=== PATIENT | male | born 1950 | race Caucasian/White ===

== ENCOUNTER 2017-10-07 15:54 | Emergency (ER) | payer MEDICARE, MEDICAID ==
[2017-10-07] MEDS ORDERED: Levofloxacin 500 MG IVPREMIX(* 500 MG/100 ML BAG IVPB ONE (18:27)
[2017-10-07 18:33] LABS: ABS Basophils 0 10^3/ul (0-0.2); ABS Eosinophils 0.2 10^3/ul (0-0.6); ABS Lymphocytes 1.2 10^3/ul (1.0-4.8); ABS Monocytes 0.5 10^3/ul (0-0.8); ABS Neutrophils 5.6 10^3/ul (1.5-7.7); ABS Nucleated RBC 0 10^3/ul; Eosinophil % 2.3 % (0-6); Hematocrit 34 % (42-52); Hemoglobin 11.6 g/dl (14.0-18.0); Lymphocyte % 15.8 % (25-47); Mean Corpuscular HGB Conc 34 g/dl (31-36); Mean Corpuscular Hemoglobin 34 pg (27-31); Mean Corpuscular Volume 100 fL (80-94); Mean Platelet Volume 7 um3 (7.4-10.4); Nucleated Red Blood Cells % 0; Platelet Count 230 10^3/ul (150-450); Red Blood Count 3.42 10^6/ul (4.0-5.4); Red Cell Distribution Width 14 % (10.5-15); White Blood Count 7.5 10^3/ul (3.5-10.8)
[2017-10-07 18:47] LABS: EGFR Non-African American 136.2 (>60)
--- NOTE | 2017-10-07 19:13 | RAD ---
HISTORY: Left fourth toe infection COMPARISONS: Bone scan dated August 29, 2017 VIEWS: 3, Frontal, lateral, and oblique views of the left foot FINDINGS: BONE DENSITY: There is diffuse osteopenia. BONES: There is no displaced fracture. There is no appreciable erosion or periosteal reaction. JOINTS: There is no arthropathy. ALIGNMENT: There is no dislocation. SOFT TISSUES: There is soft tissue swelling of the midfoot OTHER FINDINGS: None. IMPRESSION: 1. SOFT TISSUE SWELLING. 2. NO APPRECIABLE EROSION OR PERIOSTEAL REACTION. 3. OSTEOPENIA. 4. PLAIN FILM FINDINGS OF OSTEOMYELITIS ARE RELATIVELY LATE FINDINGS. IF THERE IS PERSISTENT CLINICAL CONCERN FOR OSTEOMYELITIS, RECOMMEND CORRELATION WITH FOLLOWUP IMAGING, THREE-PHASE BONE SCANNING, WHITE BLOOD CELL SCAN, AND/OR MRI OF THE AFFECTED REGION. 5. NO ACUTE OSSEOUS INJURY. IF SYMPTOMS PERSIST, RECOMMEND REPEAT IMAGING.
--- NOTE | 2017-10-07 20:21 | ED ---
Skin Complaint - HPI Summary HPI Summary: 67M presents with swelling in left 4th toe for 4 days. He states that the redness has been spreading. He was started on keflex on Sunday and the redness stopped spreading but today his 4th toe swelled up and started to have pus like drainage. He is diabetic and is being treated for stage 4 prostate CA. He has not checked his sugars recently. He denies any fever, cough, SOB. chest pain or generalized illness. He states area is painful with walking. He denies any injury of the area. - History of Current Complaint Chief Complaint: EDExtremityLower Time Seen by Provider: 10/07/17 18:02 Stated Complaint: LEFT 4TH TOE SWOLLEN Pain Intensity: 2 - Allergy/Home Medications Allergies/Adverse Reactions: Allergies Allergy/AdvReac Type Severity Reaction Status Date / Time No Known Allergies Allergy Verified 08/29/17 10:35 PMH/Surg Hx/FS Hx/Imm Hx Endocrine/Hematology History: Reports: Hx Diabetes Cardiovascular History: Reports: Hx Hypertension History: Reports: Other Problems/Disorders - prostate Denies: Hx Renal Disease - Cancer History Cancer Type, Location and Year: prostate. also liza hip pain with walking Hx Chemotherapy: No - Surgical History Surgery Procedure, Year, and Place: nose left ring finger, hemmorhoids,. veneral warts, Infectious Disease History: No Infectious Disease History: Denies: Traveled Outside the [place] in Last 30 Days - Family History Known Family History: Positive: Unknown - Social History Alcohol Use: Daily Substance Use Type: Reports: None Smoking Status (MU): Smoker, Current Status Unknown Review of Systems Negative: Fever Negative: Chest Pain Negative: Shortness Of Breath Positive: Edema - left 4th toe Positive: Rash All Other Systems Reviewed And Are Negative: Yes Physical Exam Triage Information Reviewed: Yes Vital Signs On Initial Exam: Initial Vitals Temp Pulse Resp BP Pulse Ox 97.5 F 66 15 146/72 97 10/07/17 15:58 10/07/17 15:58 10/07/17 15:58 10/07/17 15:58 10/07/17 15:58 Vital Signs Reviewed: Yes Appearance: Positive: Well-Appearing Skin: Positive: Warm, Dry, Other - abscess of 4th toe with surrouding erythema partially up left foot with warmth to the area Head/Face: Positive: Normal Head/Face Inspection Eyes: Positive: Normal, Conjunctiva Clear Respiratory/Lung Sounds: Positive: Clear to Auscultation, Breath Sounds Present Cardiovascular: Positive: Normal, RRR Musculoskeletal: Positive: Strength/ROM Intact - left foot, Edema Right - left foot, Other - good pulses Neurological: Positive: Normal Psychiatric: Positive: Normal - Dennys Coma Scale Coma Scale Total: 15 Procedures - Incision and Drainage Site: 4th toe Anesthesia: Digital Instrument(s): Scalpel Diagnostics - Vital Signs Vital Signs Temp Pulse Resp BP Pulse Ox 10/07/17 15:58 97.5 F 66 15 146/72 97 - Laboratory Lab Results: Lab Results 10/07/17 10/07/17 10/07/17 Range/Units 18:25 18:25 18:25 WBC 7.5 (3.5-10.8) 10^3/ul RBC 3.42 L (4.0-5.4) 10^6/ul Hgb 11.6 L (14.0-18.0) g/dl Hct 34 L (42-52) % MCV 100 H (80-94) fL MCH 34 H (27-31) pg MCHC 34 (31-36) g/dl RDW 14 (10.5-15) % Plt Count 230 (150-450) 10^3/ul MPV 7 L (7.4-10.4) um3 Neut % (Auto) 74.3 (38-83) % Lymph % (Auto) 15.8 L (25-47) % Johnson % (Auto) 7.2 (1-9) % Eos % (Auto) 2.3 (0-6) % Baso % (Auto) 0.4 (0-2) % Absolute Neuts (auto) 5.6 (1.5-7.7) 10^3/ul Absolute Lymphs (auto) 1.2 (1.0-4.8) 10^3/ul Absolute Monos (auto) 0.5 (0-0.8) 10^3/ul Absolute Eos (auto) 0.2 (0-0.6) 10^3/ul Absolute Basos (auto) 0 (0-0.2) 10^3/ul Absolute Nucleated RBC 0 10^3/ul Nucleated RBC % 0 Sodium 137 (133-145) mmol/L Potassium 3.3 L (3.5-5.0) mmol/L Chloride 103 (101-111) mmol/L Carbon Dioxide 27 (22-32) mmol/L Anion Gap 7 (2-11) mmol/L BUN 8 (6-24) mg/dL Creatinine 0.59 L (0.67-1.17) mg/dL Est GFR ( Amer) 175.2 (>60) Est GFR (Non-Af Amer) 136.2 (>60) BUN/Creatinine Ratio 13.6 (8-20) Glucose 210 H (70-100) mg/dL Lactic Acid 1.1 (0.5-2.0) mmol/L Calcium 9.1 (8.6-10.3) mg/dL Total Bilirubin 0.50 (0.2-1.0) mg/dL AST 19 (13-39) U/L ALT 6 L (7-52) U/L Alkaline Phosphatase 154 H (34-104) U/L Total Protein 6.7 (6.4-8.9) g/dL Albumin 3.8 (3.2-5.2) g/dL Globulin 2.9 (2-4) g/dL Albumin/Globulin Ratio 1.3 (1-3) Result Diagrams: 10/07/17 18:25 10/07/17 18:25 Lab Statement: Any lab studies that have been ordered have been reviewed, and results considered in the medical decision making process. - Radiology foot Xray Interpretation: Positive (See Comments) - IMPRESSION: 1. SOFT TISSUE SWELLING. 2. NO APPRECIABLE EROSION OR PERIOSTEAL REACTION. 3. OSTEOPENIA. 4. PLAIN FILM FINDINGS OF OSTEOMYELITIS ARE RELATIVELY LATE FINDINGS. IF THERE IS PERSISTENT CLINICAL CONCERN FOR OSTEOMYELITIS, RECOMMEND CORRELATION WITH FOLLOWUP IMAGING, THREE-PHASE BONE SCANNING, WHITE BLOOD CELL SCAN, AND/OR MRI OF THE AFFECTED REGION. 5. NO ACUTE OSSEOUS INJURY. IF SYMPTOMS PERSIST, RECOMMEND REPEAT IMAGING. Radiology Interpretation Completed By: Radiologist Course/Dx - Course Course Of Treatment: 67M presents with swelling in left 4th toe for 4 days. He states that the redness has been spreading. He was started on keflex on Sunday and the redness stopped spreading but today his 4th toe swelled up and started to have pus like drainage. He is diabetic and is being treated for stage 4 prostate CA. He has not checked his sugars recently. He denies any fever, cough, SOB. chest pain or generalized illness. He states area is painful with walking. He denies any injury of the area. on exam has abscess of left 4th toe. has erythema partially up the foot. labs normal wbc and lactic. drained abscess and gave dose of levaquin and cellulitis improved. will discharge with levaquin in addition to keflex. has follow up on sunday already. warned of signs to return to ED for. patient understand and agrees with plan. - Differential Diagnoses - Skin Complaint Differential Diagnoses: Abscess, Cellulitis, Contact Dermatitis - Diagnoses Provider Diagnoses: Cellulitis and abscess of toe of left foot Discharge - Discharge Plan Condition: Good Disposition: HOME Prescriptions: Levofloxacin TAB* [Levaquin TAB*] 500 mg PO DAILY #9 tab Patient Education Materials: Cellulitis (ED), Abscess (ED) Referrals: Yanci Jhaveri MD [Primary Care Provider] - Additional Instructions: Continue keflex as prescribed add levaquin once a day for 9 days Do warm soaks of area Follow up with doctor within 2 days Return to ED if develop fever, area of redness spreads, or any new or worsening symptoms
[2017-10-07 20:55] VITALS: BP 147/78
--- NOTE | 2017-10-08 09:36 | PN ---
Progress Note - Progress Note Date of Service: 10/07/17 Note: lab called to inform that wound culture shows staph aureus + and MRSA negative. patient was diagnosed with cellulitis and treated with levofloxacin which has susceptibility. no further action required at this time.
== END 2017-10-07 20:59 | disposition home or self-care (01) ==
LOC: ED 15:54
DX: L03.032 Cellulitis of left toe (principal); B95.61 Methicillin susceptible Staphylococcus aureus infection as the cause of diseases classified elsewhere; M85.872 Other specified disorders of bone density and structure, left ankle and foot; F17.200 Nicotine dependence, unspecified, uncomplicated
CPT/HCPCS: 36415; 80053; 83605; 85025; 87070; 87077; 87186; 87205; 87640; 87641; 96365; 96374; 99282; J1956

== ENCOUNTER 2017-11-21 07:19 | Day surgery (SDC) | payer MEDICARE, MEDICAID ==
[~2017-11-21 07:19] MED LIST: Buffered Lidocaine 0.9% SYRIN* 5 ML/SYR SYRINGE INTRADERM ONE
[2017-11-21] MEDS ORDERED: Lidocaine 1% INJ* 10 MG/ML 30 ML SDV ONE (07:20)
[2017-11-21] MEDS ORDERED: Bupivacaine 0.5% SDV PF* 10-30ML VIAL ONE (07:21)
[2017-11-21] MEDS ORDERED: Dexamethasone IV* 4 MG/ML 1 ML (4 MG) ONE (07:30)
[2017-11-21 08:46] VITALS: BP 153/78
--- NOTE | 2017-11-22 00:20 | OP ---
DATE OF OPERATION: 11/21/17 - [facility] DATE OF : 46 SURGEON: Derrick Vasquez DPM DRIVER/GUIDE: None. ANESTHESIA: Local anesthesia. PRE-OP DIAGNOSIS: Ulcerated fourth left toe with confirmed osteomyelitis. POST-OP DIAGNOSIS: Ulcerated fourth left toe with confirmed osteomyelitis. OPERATIVE REPORT: Amputation of fourth left toe. INDICATIONS: Diabetic patient seen with chronic ulceration and abscess and confirmed osteomyelitis per MRI with requiring amputation of the digits to cure the infection and minimize chronic antibiotic exposure. PATHOLOGY: Amputated toe and proximal wound cultures, aerobic and anaerobic. HEMOSTASIS: None. ESTIMATED BLOOD LOSS: Less than 20 cc. DESCRIPTION OF PROCEDURE: The patient was brought to the operating room, placed on the operating table in supine position. Left foot was prepped and draped in usual fashion. Next, 0.5% Marcaine plain was used as a proximal digital block. After assuring adequate anesthesia, the 2 semi-elliptical incisions were made and then sized down to bone and the digit was resected and sent off the field as specimen. The proximal wound was flushed copiously with normal sterile saline, then an aerobic and anaerobic culture swabs were introduced and sent to field. Again, the surgical site was flushed with copious amounts of normal sterile saline. Hemostasis with compression was necessary. Deep tissues and subcutaneous tissues were reapproximated with 4-0 Vicryl and the skin was reapproximated and secured with 4-0 Nylon. The incision was then dressed with Xeroform gauze and a sterile dressing consisting of 4x4 gauze, Conner, ABD pad and Kerlix and light Coban wrap. Having appeared to tolerate the procedure and anesthesia well, the patient was transported via cart from the operating room Recovery in satisfactory condition with cap refill less than 3 seconds to all the remaining digits on the left foot. [id number]/[facility] #: [id number] [facility] HOSPITALElizabeth
== END 2017-11-21 09:05 | disposition home or self-care (01) ==
LOC: OREAST 07:19
PROVIDERS: ATTEND Podiatrist Foot Surgery
DX: M86.8X7 Other osteomyelitis, ankle and foot (principal); Z79.84 Long term (current) use of oral hypoglycemic drugs; E11.69 Type 2 diabetes mellitus with other specified complication; E78.2 Mixed hyperlipidemia; Z72.0 Tobacco use; I10 Essential (primary) hypertension; C61 Malignant neoplasm of prostate; R94.31 Abnormal electrocardiogram [ECG] [EKG]; I45.10 Unspecified right bundle-branch block; I73.9 Peripheral vascular disease, unspecified
CPT/HCPCS: 87070; 87073; 87205; 88305; 88311; J1100

== ENCOUNTER 2018-03-14 06:18 | Day surgery (SDC) | payer MEDICARE, MEDICAID ==
[2018-03-14] MEDS ORDERED: Bupivacaine 0.5%* 50 ML VIAL ONE (07:27)
[2018-03-14 08:16] VITALS: BP 93/75
--- NOTE | 2018-03-15 08:10 | OP ---
DATE OF OPERATION: 03/14/18 [facility] DATE OF : 46. SURGEON: Derrick Vasquez DPM. DIRECTOR OF PLANNING: None. ANESTHESIA: Local anesthesia. PRE-OP DIAGNOSIS: Chronic ulceration with osteomyelitis of the third left toe. POST-OP DIAGNOSIS: Chronic ulceration with osteomyelitis of the third left toe. OPERATIVE PROCEDURE: Amputation of the third left toe. PATHOLOGY: Amputated digit and cultures from proximal wound including aerobic and anaerobic, Gram-stain, and fungal cultures. HEMOSTASIS: Pneumatic ankle tourniquet. ESTIMATED BLOOD LOSS: Less than 10 cc. INDICATIONS: The patient with chronic ulceration to the distal third left toe with focal cellulitis, slow healing ulcer with sinus and probing to the distal phalanx. Amputation of digit is indicated at this time to treat the infection, minimize further infection and limit the need for antibiotic therapy. DESCRIPTION OF PROCEDURE: The patient was brought to the operating room, placed on the operating table in supine position. The left foot was prepped and draped. Digital blocks performed with 0.5% Marcaine plain. The left foot was prepped and draped in the usual fashion and an Esmarch bandage was utilized to exsanguinate the left foot and a pneumatic ankle tourniquet was inflated to 250 mmHg above a well- padded left ankle. Attention was directed to the third digit where two converging semi-elliptical incisions were made to allow for adequate soft tissue closure. Dissection was carried to the deep fascia and the proximal interphalangeal joint the distal digit was disarticulated and was amputated as specimen. The surgical site was flushed with copious amounts of normal sterile saline. The wound was inspected and no purulent or necrotic devitalized tissue was noted. Thereafter, I flushed the proximal wound, it was cultured for aerobic and anaerobic, Gram stain, and fungal cultures. The subcutaneous tissues were reapproximated with 4-0 Vicryl and the skin was closed with 5-0 and 4-0 nylon. The incision was dressed with Xeroform gauze and a bulky mild decompressive dressing was applied and secured with Coban wrap. The pneumatic ankle tourniquet was deflated and prior to completely closing the dressing, the capillary refill was noted to be prompted and brisk capillary refill to all the remaining digits less than 3 seconds. Having appeared to have tolerated the procedure and anesthesia well, the patient was transported to via cart from the operating room to Recovery in satisfactory condition with capillary refill intact to the left foot. [id number]/[facility] #: [id number] SARY
== END 2018-03-14 08:30 | disposition home or self-care (01) ==
LOC: OREAST 06:18
PROVIDERS: ATTEND Podiatrist Foot Surgery
DX: M86.172 Other acute osteomyelitis, left ankle and foot (principal); E11.40 Type 2 diabetes mellitus with diabetic neuropathy, unspecified; Z79.84 Long term (current) use of oral hypoglycemic drugs; Z72.0 Tobacco use; A49.01 Methicillin susceptible Staphylococcus aureus infection, unspecified site; I10 Essential (primary) hypertension; F41.8 Other specified anxiety disorders
CPT/HCPCS: 87070; 87073; 87077; 87102; 87186; 87205; 87640; 87641

== ENCOUNTER 2018-03-27 11:30 | Emergency (ER) | payer MEDICARE, MEDICAID ==
[2018-03-27] MEDS ORDERED: Glucose ORAL* 15 GM TUBE PO ONE (11:45)
[2018-03-27 12:43] LABS: Hematocrit 36 % (42-52); Hemoglobin 12.3 g/dl (14.0-18.0); Mean Corpuscular HGB Conc 34 g/dl (31-36); Mean Corpuscular Hemoglobin 35 pg (27-31); Mean Corpuscular Volume 101 fL (80-94); Red Blood Count 3.54 10^6/ul (4.0-5.4); Red Cell Distribution Width 14 % (10.5-15)
--- NOTE | 2018-03-27 12:47 | RAD ---
INDICATION: Weakness COMPARISON: Chest x-ray dated June 23, 2011 TECHNIQUE: PA and lateral views of the chest were obtained. FINDINGS: The heart and mediastinum are normal in size and contour. The lungs are grossly clear. There is no evidence of large pleural effusion. Visualized bones are normal for the patient's age. There is no radiographic evidence of free air beneath the diaphragm IMPRESSION: No radiographic evidence of acute cardiopulmonary disease.
[2018-03-27 13:13] LABS: Mean Platelet Volume 8.3 um3 (7.4-10.4); Platelet Count 227 10^3/ul (150-450); White Blood Count 13.5 10^3/ul (3.5-10.8)
[2018-03-27 13:15] LABS: Monocytes % 8 % (0-7)
[2018-03-27 13:37] LABS: Urine Appearance Clear; Urine Blood Negative (Negative); Urine Color Yellow; Urine Ketones Negative (Negative); Urine Protein Negative (Negative); Urine Urobilinogen Negative (Negative)
[2018-03-27 14:38] VITALS: BP 131/64
--- NOTE | 2018-03-28 11:49 | ED ---
Kevin Hoover Angela, scribed for Simeon Nicole MD on 03/27/18 at 1159 . HPI Diabetic - HPI Summary HPI Summary: This pt is a 67 y/o male, with hx of diabetes, presenting to [facility] via EMS for hypoglycemia. Pt reports he was at Dr. Morales for an appointment when he began to feel diaphoretic. Pt states he was given 3 small cookies (the size of a half dollar) and a small glass of soda with very mild relief. Per EMS the pt' s blood glucose was in the 40s. Denies chest pain, SOB, nausea, vomiting, weakness, tremors. He takes Glipizide for diabetes. Pt notes he has had two toe amputations, left fourth toe on 11/21/17 and left third on 03/14/18. The pt was started on Doxycycline and now is taking Bactrim. He is currently on morphine, gabapentin, and oxycodone for the pain. - History Of Current Complaint Time Seen by Provider: 03/27/18 11:37 Hx Obtained From: Patient Onset/Duration: Sudden Onset, Still Present Timing: Constant Severity Currently: Moderate Character: Other - diaphoretic Aggravating: Nothing Alleviating: Other - cookies and soda Associated Signs & Symptoms: Diaphoresis - Allergies/Home Medications Allergies/Adverse Reactions: Allergies Allergy/AdvReac Type Severity Reaction Status Date / Time No Known Allergies Allergy Verified 11/21/17 07:45 Home Medications: Home Medications Abiraterone (NF) [Zytiga (NF)] 1,000 mg PO QPM 03/27/18 [History Confirmed 03/27] FLUoxetine CAP* [PROzac CAP*] 20 mg PO QPM 03/27/18 [History Confirmed 03/27/18] Leuprolide 22.5 (3 MONTH) KIT* [Eligard KIT*] 22.5 mg IM Q3M 03/27/18 [History Confirmed 03/27/18] Lisinopril TAB* [Prinivil TAB*] 10 mg PO DAILY 03/27/18 [History Confirmed 03/27] Menthol [Gold Steven Foot Powder Max] 1 pow TOPICAL DAILY 03/27/18 [History Confirmed 03/27/18] Multivitamins/Minerals TAB* [Theragran/minerals TAB*] 1 tab PO DAILY 03/27/18 [ History Confirmed 03/27/18] Potassium Chlor TAB* [Klor Con ER TAB*] 20 meq PO QPM 03/27/18 [History Confirmed 03/27/18] amLODIPine TAB* [Norvasc 5 mg TAB*] 10 mg PO QPM 03/27/18 [History Confirmed 04/08] glipiZIDE TAB* [Glucotrol TAB*] 5 mg PO QPM 03/27/18 [History Confirmed 03/27/18 ] glipiZIDE TAB* [Glucotrol TAB*] 10 mg PO QAM 03/27/18 [History Confirmed ] metFORMIN* [Glucophage 1000 MG TAB *] 1,000 mg PO BID 03/27/18 [History Confirmed 03/27/18] oxyCODONE/Acetamin 5/325 MG* [Percocet 5/325 TAB*] 1 tab PO Q4H PRN 03/27/18 [ History Confirmed 03/27/18] PMH/Surg Hx/FS Hx/Imm Hx Endocrine/Hematology History: Reports: Hx Diabetes Cardiovascular History: Reports: Hx Hypertension Denies: Hx Pacemaker/ICD, Other Cardiovascular Problems/Disorders Respiratory History: Denies: Other Respiratory Problems/Disorders GI History: Reports: Hx Ulcer - "PRE ULCERAL CONDITION" Denies: Other GI Disorders History: Reports: Other Problems/Disorders - 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 Denies: Hx Renal Disease Musculoskeletal History: Reports: Other Musculoskeletal History - CHRONIC OSTEOMYELITIS, FOOT WOUND, BONE METS- SKULL & RIBS Sensory History: Reports: Hx Cataracts - EARLY STAGES, Hx Contacts or Glasses - GLASSES Denies: Hx Hearing Aid Opthamlomology History: Reports: Hx Cataracts - EARLY STAGES, Hx Contacts or Glasses - GLASSES Neurological History: Reports: Hx Migraine - NOT IN 16 YEARS, Other Neuro Impairments/Disorders - DIABETIC NEUROPATHY Psychiatric History: Reports: Hx Anxiety - ON MEDICATION, (STATES HE HAD A NERVOUS BREAKDOWN), Hx Depression - ON MEDICATION Denies: Hx Panic Disorder - Cancer History Cancer Type, Location and Year: prostate- Hx Chemotherapy: Yes - ZYTIGA - Surgical History Surgery Procedure, Year, and Place: 1961-NOSE BROKEN-REPAIRED. 1963-SEVERED LEFT RING FINGER REATTACHED. 1967 TONSILS. 1992-HEMORROIDECTOMY. 2004- VENEREAL WARTS REMOVED Hx Anesthesia Reactions: No Infectious Disease History: No Infectious Disease History: Denies: Traveled Outside the [place] in Last 30 Days - Family History Known Family History: Positive: Unknown - pt is adopted - Social History Alcohol Use: Daily Alcohol Amount: 1 BEER Substance Use Type: Reports: None Smoking Status (MU): Current Every Day Smoker Type: Pipe Amount Used/How Often: 3-4 PIPES PER DAY Have You Smoked in the Last Year: Yes Review of Systems Positive: Skin Diaphoresis. Negative: Fever, Chills Negative: Chest Pain Negative: Shortness Of Breath Negative: Vomiting, Nausea Neurological: Other - NEG: tremors Negative: Weakness All Other Systems Reviewed And Are Negative: Yes Physical Exam - Summary Physical Exam Summary: VITAL SIGNS: Reviewed. GENERAL: Patient is a well-developed and nourished male who is lying comfortable in the stretcher. Patient is not in any acute respiratory distress. HEAD AND FACE: No signs of trauma. No ecchymosis, hematomas or skull depressions. No sinus tenderness. EYES: PERRLA, EOMI x 2, No injected conjunctiva, no nystagmus. EARS: Hearing grossly intact. Ear canals and tympanic membranes are within normal limits. MOUTH: Oropharynx within normal limits. NECK: Supple, trachea is midline, no adenopathy, no JVD, no carotid bruit, no c- spine tenderness, neck with full ROM. CHEST: Symmetric, no tenderness at palpation LUNGS: Clear to auscultation bilaterally. No wheezing or crackles. CVS: Regular rate and rhythm, S1 and S2 present, no murmurs or gallops appreciated. ABDOMEN: Soft, non-tender. No signs of distention. No rebound no guarding, and no masses palpated. Bowel sounds are normal. EXTREMITIES: FROM in all major joints, no edema, no cyanosis or clubbing. LLE: left foot bandage placed by operator automated process. Pt reports it is not infected. Pt does not let us open it. NEURO: Alert and oriented x 3. No acute neurological deficits. Speech is normal and follows commands. SKIN: Dry and warm Triage Information Reviewed: Yes Vital Signs On Initial Exam: Initial Vitals Resp BP 16 131/64 03/27/18 11:39 03/27/18 11:39 Vital Signs Reviewed: Yes Diagnostics - Vital Signs Vital Signs Temp Pulse Resp BP Pulse Ox 03/27/18 11:47 97 F 53 16 131/64 94 03/27/18 11:39 16 131/64 - Laboratory Lab Results: Lab Results 03/27/18 Range/Units 11:39 POC Glucose (mg/dL) 62 L (70-100) mg/dL Result Diagrams: 03/27/18 11:58 03/27/18 12:37 Lab Statement: Any lab studies that have been ordered have been reviewed, and results considered in the medical decision making process. - Radiology Chest XR Xray Interpretation: No Acute Changes - IMPRESSION: No radiographic evidence of acute cardiopulmonary disease. Dr. Nicole has reviewed this radiology report. Radiology Interpretation Completed By: Radiologist - EKG 11:49 Cardiac Rate: Bradycardia - at 51 bpm EKG Rhythm: Sinus Bradycardia EKG Interpretation: No ST elevations. T wave inversion in III and aVF. Re-Evaluation - Re-Evaluation First Eval Re-Evaluation Time: 13:32 Change: Improved Comment: Pt is feeling better. I reviewed the lab results with the pt. He will be discharged home. Second Eval Re-Evaluation Time: 14:06 Change: Improved Comment: Prior to discharge the pt's blood glucose was 114. Diabetic Course/Dx - Course Assessment/Plan: Pt is a 67 y/o male, with hx of diabetes, who presents with hypoglycemia. Pt reports he was at Dr. Morales for an appointment when he began to feel diaphoretic. Pt states he was given 3 small cookies (the size of a half dollar) and a small glass of soda with very mild relief. Per EMS the pt' s blood glucose was in the 40s. Denies chest pain, SOB, nausea, vomiting, weakness, tremors. He takes Glipizide for diabetes. Test results without any significant abnormalities except for WBC of 13.5, normocytic normochromic anemia , CRP of 48, possibly secondary to his chronic infection in the left lower extremity. Urinalysis is negative for UTI. The pt was given some glucose PO and he was given food. Pt was observed for a couple of hours in the emergency department and his sugar did not drop. He did not take his Glipizide today and was recommended not to take it today. Therefore, the pt will be discharged home with follow up from his PCP. Pts blood glucose prior to discharge was 114. I discussed all the findings and test results with the patient. All questions were answered to patient satisfaction. There were no further complaints or concerns. He is instructed to return to the ED for any worsening or new symptoms. Pt is hemodynamically stable, alert and oriented x3. - Diagnoses Provider Diagnoses: Hypoglycemia Discharge - Sign-Out/Discharge Documenting (check all that apply): Discharge/Admit/Transfer - Discharge - Discharge Plan Condition: Stable Disposition: HOME Patient Education Materials: Hypoglycemia in a Person with Diabetes (ED) Referrals: Yanci Jhaveri MD [Primary Care Provider] - 3 Days Additional Instructions: Please follow up with your primary care provider. RETURN TO THE ED FOR ANY NEW OR WORSENING SYMPTOMS. The documentation as recorded by the Kevin stephenson Angela accurately reflects the service I personally performed and the decisions made by me, Simeon Nicole MD.
== END 2018-03-27 14:37 | disposition home or self-care (01) ==
LOC: ED 11:30
DX: E11.649 Type 2 diabetes mellitus with hypoglycemia without coma (principal); Z79.84 Long term (current) use of oral hypoglycemic drugs; R00.1 Bradycardia, unspecified; R61 Generalized hyperhidrosis; I10 Essential (primary) hypertension; F41.9 Anxiety disorder, unspecified; C61 Malignant neoplasm of prostate; C79.51 Secondary malignant neoplasm of bone; F17.290 Nicotine dependence, other tobacco product, uncomplicated
CPT/HCPCS: 36415; 71046; 80053; 81003; 82550; 82803; 85025; 86140; 93005; 99282

== ENCOUNTER 2019-02-16 22:57 | Emergency (ER) | payer MEDICARE, MEDICAID ==
--- NOTE | 2019-02-16 23:08 | ED ---
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 Symptoms aggravated by movement. Symptoms alleviated by nothing. Patient denies fever. Patient states he ran out of the oxycodone and morphine he takes for pain on 02/14/2019. - History of Current Complaint Stated Complaint: BACK PAIN PER EMS Time Seen by Provider: 02/16/19 23:03 Hx Obtained From: Patient Onset/Duration: Sudden Onset, Lasting Hours, Still Present Onset/Duration: Started Hours Ago, Atraumatic, Still Present Timing: Constant Back Pain Location: Is Diffuse Aggravating Symptom(s): Movement Alleviating Symptom(s): Nothing Associated Signs And Symptoms: Positive: Other - Negative fever - Allergies/Home Medications Allergies/Adverse Reactions: Allergies Allergy/AdvReac Type Severity Reaction Status Date / Time No Known Allergies Allergy Verified 04/02/18 15:04 PMH/Surg Hx/FS Hx/Imm Hx Previously Healthy: No Endocrine/Hematology History: Reports: Hx Diabetes Cardiovascular History: Reports: Hx Hypertension Denies: Hx Pacemaker/ICD, Other Cardiovascular Problems/Disorders Respiratory History: Denies: Other Respiratory Problems/Disorders GI History: Reports: Hx Ulcer - "PRE ULCERAL CONDITION" Denies: Other GI Disorders History: Reports: Other Problems/Disorders - 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 Denies: Hx Renal Disease Musculoskeletal History: Reports: Other Musculoskeletal History - CHRONIC OSTEOMYELITIS, FOOT WOUND, BONE METS- SKULL & RIBS Sensory History: Reports: Hx Cataracts - EARLY STAGES, Hx Contacts or Glasses - GLASSES Denies: Hx Hearing Aid Opthamlomology History: Reports: Hx Cataracts - EARLY STAGES, Hx Contacts or Glasses - GLASSES Neurological History: Reports: Hx Migraine - NOT IN 16 YEARS, Other Neuro Impairments/Disorders - DIABETIC NEUROPATHY Psychiatric History: Reports: Hx Anxiety - ON MEDICATION, (STATES HE HAD A NERVOUS BREAKDOWN), Hx Depression - ON MEDICATION Denies: Hx Panic Disorder - Cancer History Cancer Type, Location and Year: 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 1963-SEVERED LEFT RING FINGER REATTACHED. 1967 TONSILS. 1992-HEMORROIDECTOMY. 2004- VENEREAL WARTS REMOVED. 10/2017 - Lt FOOT - 4TH TOE AMPUTATED & 02/2018 - 3RD TOE AMPUTATED Hx Anesthesia Reactions: No - Family History Known Family History: Positive: Unknown - pt is adopted - Social History Occupation: Unemployed Lives: Alone Alcohol Use: Daily Alcohol Amount: 1 BEER Hx Substance Use: No Substance Use Type: Reports: None Hx Tobacco Use: Yes Smoking Status (MU): Current Every Day Smoker Type: Pipe Amount Used/How Often: 3-4 PIPES PER DAY Have You Smoked in the Last Year: Yes Review of Systems Negative: Fever Positive: Other - Positive back pain All Other Systems Reviewed And Are Negative: Yes Physical Exam - Summary Physical Exam Summary: Appearance: Well-appearing, Well-nourished, lying in bed comfortable Skin: Warm, dry, no obvious rash Eyes: sclera anicteric, no conjunctival pallor ENT: mucous membranes moist Neck: deferred Respiratory: No signs of respiratory distress Cardiovascular: Appears well perfused, pulses are nml Abdomen: deferred Musculoskeletal: Moving all 4 extremities without obvious discomfort Neurological: Awake and alert, mentation is normal, speech is fluent and appropriate Psychiatric: affect is normal, does not appear anxious or depressed Triage Information Reviewed: Yes Vital Signs Reviewed: Yes Back Pain Course/Dx - Course Course Of Treatment: This patient is a 68 year old M brought in by ambulance to [facility] with a chief complaint of 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 Physical Exam Findings: Nml. In the ED course the patient was given Morphine. Patient will be discharged with follow up from PCP. The patient is agreeable with this plan. - Diagnoses Provider Diagnoses: Chronic back pain, Prostate cancer metastatic to bone Discharge - Sign-Out/Discharge Documenting (check all that apply): Patient Departure - Discharge home Patient Received Moderate/Deep Sedation with Procedure: No - Discharge Plan Condition: Good Disposition: HOME Patient Education Materials: Chronic Pain (ED) Referrals: Yanci Jhaveri MD [Primary Care Provider] - - Attestation Statements Document Initiated by Scribe: Yes Documenting Scribe: Lisa Corbett Provider For Whom Scribe is Documenting (Include Credential): Dr. Yazan Robert MD Scribe Attestation: Lisa Hoover scribed for Dr. Yazan Robert MD on 02/16/19 at 2327. Status of Scribe Document: Ready
[2019-02-16] MEDS ORDERED: Morphine TAB Extended Release (*) 30 MG TAB.ER PO ONE (23:10)
[2019-02-17 00:33] VITALS: BP 154/81
== END 2019-02-17 00:29 | disposition home or self-care (01) ==
LOC: ED 22:57
DX: M54.9 Dorsalgia, unspecified (principal); G89.29 Other chronic pain; I10 Essential (primary) hypertension; E11.9 Type 2 diabetes mellitus without complications; F17.210 Nicotine dependence, cigarettes, uncomplicated; C61 Malignant neoplasm of prostate; Z92.21 Personal history of antineoplastic chemotherapy
CPT/HCPCS: 99282; A9270-GY

== ENCOUNTER 2019-08-16 17:47 | Emergency (ER) | payer MEDICARE, MEDICAID ==
--- NOTE | 2019-08-16 18:08 | ED ---
Lower Extremity - HPI Summary HPI Summary: The patient is a 69 y/o M arriving by ambulance to [facility] with a chief complaint of gradually worsening ulcerations in the toes on the left foot in the last week. He reports that he had surgery recently for amputation of the third and fourth digits of the left foot but then noticed that there was an ulceration forming the fifth digit after clipping the nail. The toe began to drain, and he sought out treatment on 08/12/19 for which he had the proper dressing applied. He went to change the dressing today and noticed increased drainage in the toe. He additionally c/o edema in the left leg, and he denies any fevers. Currently, his symptoms are rated 8/10 in severity. Recently had XR on 07/22/19 done on left foot showing osteomyelitis in the fifth digit. PMHx: DM, HTN, anxiety, depression, prostate cancer with pill treatment October 2011. Current every day smoker, daily EtOH, no substance use. Medications reviewed. Allergies noted. - History of Current Complaint Stated Complaint: FOOT INFECTION PER EMS Time Seen by Provider: 08/16/19 17:53 Hx Obtained From: Patient Mechanism Of Injury: Unknown - clipped toe nail following toe removal recently on nearby toes Onset of Pain: Days Onset/Duration: Still Present Severity Initially: Mild Severity Currently: Moderate Pain Intensity: 8 Pain Scale Used: 0-10 Numeric Timing: Lasting Days Location: Is Discrete @ - fifth digit left foot Character Of Pain: Aching Associated Signs And Symptoms: Positive: Other - ulceration, drainage Aggravating Factor(s): Nothing Alleviating Factor(s): Nothing Able to Bear Weight: Yes - Allergies/Home Medications Allergies/Adverse Reactions: Allergies Allergy/AdvReac Type Severity Reaction Status Date / Time No Known Allergies Allergy Verified 04/02/18 15:04 PMH/Surg Hx/FS Hx/Imm Hx Endocrine/Hematology History: Reports: Hx Diabetes - DMII Cardiovascular History: Reports: Hx Hypertension Denies: Hx Pacemaker/ICD, Other Cardiovascular Problems/Disorders Respiratory History: Denies: Other Respiratory Problems/Disorders GI History: Reports: Hx Ulcer - "PRE ULCERAL CONDITION" Denies: Other GI Disorders History: Reports: Other Problems/Disorders - 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 Denies: Hx Renal Disease Musculoskeletal History: Reports: Other Musculoskeletal History - CHRONIC OSTEOMYELITIS, FOOT WOUND, BONE METS- SKULL & RIBS Sensory History: Reports: Hx Cataracts - EARLY STAGES, Hx Contacts or Glasses - GLASSES Denies: Hx Hearing Aid Opthamlomology History: Reports: Hx Cataracts - EARLY STAGES, Hx Contacts or Glasses - GLASSES Neurological History: Reports: Hx Migraine - NOT IN 16 YEARS, Other Neuro Impairments/Disorders - DIABETIC NEUROPATHY Psychiatric History: Reports: Hx Anxiety - ON MEDICATION, (STATES HE HAD A NERVOUS BREAKDOWN), Hx Depression - ON MEDICATION Denies: Hx Panic Disorder - Cancer History Cancer Type, Location and Year: 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 1963-SEVERED LEFT RING FINGER REATTACHED. 1967 TONSILS. 1992-HEMORROIDECTOMY. 2004- VENEREAL WARTS REMOVED. 10/2017 - Lt FOOT - 4TH TOE AMPUTATED & 02/2018 - 3RD TOE AMPUTATED Hx Anesthesia Reactions: No - Family History Known Family History: Positive: Unknown - pt is adopted - Social History Alcohol Use: Daily Alcohol Amount: 1 BEER Hx Substance Use: No Substance Use Type: Reports: None Hx Tobacco Use: Yes Smoking Status (MU): Current Every Day Smoker Type: Pipe Amount Used/How Often: 3-4 PIPES PER DAY Have You Smoked in the Last Year: Yes Review of Systems Negative: Fever Positive: Edema - in left leg Positive: Other - ulceration in the fifth digit on the left foot All Other Systems Reviewed And Are Negative: Yes Physical Exam - Summary Physical Exam Summary: Constitutional: Well-developed, Well-nourished, Alert. (-) Distressed Skin: Warm, Dry HENT: Normocephalic; Atraumatic Eyes: Conjunctiva normal Neck: Musculoskeletal ROM normal neck. (-) JVD, (-) Stridor, (-) Nuchal rigidity Cardio: Rhythm regular, rate normal, Heart sounds normal; Intact distal pulses; Radial pulses are 2+ and symmetric. (-) Murmur Pulmonary/Chest wall: Effort normal. (-) Respiratory distress, (-) Wheezes, (-) Rales Abd: Soft, (-) tenderness, (-) Distension, (-) Guarding, (-) Rebound Musculoskeletal: (+) 2+ Edema on left leg, Status post amputation of the third and fourth toes, Ulcer to the plantar surface of the fifth toe with macerated tissue, No purulent drainage, 2+ DP pulse Lymph: (-) Cervical adenopathy Neuro: Alert, Oriented x3 Psych: Mood and affect Normal Triage Information Reviewed: Yes Vital Signs Reviewed: Yes Procedures - Sedation Patient Received Moderate/Deep Sedation with Procedure: No Re-Evaluation - Re-Evaluation First Eval Re-Evaluation Time: 19:20 Change: Improved Comment: Patient's wound is dressed. We discussed plan for discharge home. Lower Extremity Course/Dx - Course Course Of Treatment: 69 y/o male w DM, hx L foot toe amputations p/w draining ulcer of L toe. - no systemic signs of infection, just requesting wound care. No purulent drainage. XR concerning for osteo on 07/22. Follows w podiatry. Called and they will see him Sunday. - Diagnoses Provider Diagnoses: Osteomyelitis Discharge ED - Sign-Out/Discharge Documenting (check all that apply): Patient Departure - Patient will be discharged home. - Discharge Plan Condition: Stable Disposition: HOME Patient Education Materials: Osteomyelitis (ED) Referrals: Yanci Jhaveri MD [Primary Care Provider] - Derrick Vasquez DPM [Doctor of Podiatric Medicine] - 08/18/19 Additional Instructions: You were seen in the emergency department for the wound in your toe. 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 If any studies were not completed at the time of discharge you will be called with the relevant results. Please follow up with your primary care doctor in next 2-3 days and return to emergency department for worsening drainage from the area, fevers or concerning symptoms. It was a pleasure taking care of you today. - Billing Disposition and Condition Condition: STABLE Disposition: Home - Attestation Statements Document Initiated by Sean: Yes Documenting Scribe: Cami Leger Provider For Whom Sean is Documenting (Include Credential): Dr. Carmelo Thurman MD Scribe Attestation: Cami Hoover scribed for Dr. Carmelo Thurman MD on 08/16/19 at 1952. Scribe Documentation Reviewed: Yes Provider Attestation: The documentation as recorded by the Cami stephenson accurately reflects the service I personally performed and the decisions made by me, Dr. Carmelo Thurman MD Status of Scribe Document: Viewed
[2019-08-16 19:53] VITALS: BP 141/41
== END 2019-08-16 19:52 | disposition home or self-care (01) ==
LOC: ED 17:47
DX: M86.9 Osteomyelitis, unspecified (principal); E11.9 Type 2 diabetes mellitus without complications; I10 Essential (primary) hypertension; F41.9 Anxiety disorder, unspecified; F32.9 Major depressive disorder, single episode, unspecified; C61 Malignant neoplasm of prostate; C79.51 Secondary malignant neoplasm of bone; F17.290 Nicotine dependence, other tobacco product, uncomplicated; Z79.899 Other long term (current) drug therapy
CPT/HCPCS: 99282

== ENCOUNTER 2019-08-28 16:11 | Emergency (ER) | payer MEDICARE, MEDICAID ==
[2019-08-28] MEDS ORDERED: Morphine 4 MG/ML VIAL (1 ml) 4 MG/ML VIAL IV ONE (16:29)
[2019-08-28] MEDS ORDERED: Ondansetron INJ* 2 MG/ML VIAL IV ONE (16:29)
[2019-08-28 16:56] LABS: ABS Lymphocytes 0.5 10^3/ul (1.0-4.8); ABS Monocytes 0.7 10^3/ul (0-0.8); ABS Neutrophils 5.6 10^3/ul (1.5-7.7); Eosinophil % 0.3 %; Hematocrit 23 % (42-52); Hemoglobin 7.7 g/dL (14.0-18.0); Lymphocyte % 6.8 %; Mean Corpuscular HGB Conc 33 g/dL (31-36); Mean Corpuscular Hemoglobin 31 pg (27-31); Mean Corpuscular Volume 94 fL (80-94); Mean Platelet Volume 6.6 fL (7.4-10.4); Nucleated Red Blood Cells % 0.1; Platelet Count 210 10^3/uL (150-450); Red Blood Count 2.47 10^6 /uL (4.18-5.48); Red Cell Distribution Width 19 % (10-15); White Blood Count 6.8 10^3/uL (3.5-10.8)
--- NOTE | 2019-08-28 17:06 | ED ---
Lower Extremity - HPI Summary HPI Summary: Patient is a 69-year-old male with a past medical history of stage IV prostate cancer with metastasis to the pelvis and skull, hypertension, hypercholesterolemia who presents to the emergency department today complaining of severe left leg and hip pain which began this afternoon. This pain as a 10.5 out of 10 stabbing pain which does not radiate. Patient has not taken any medication for this prior to arrival.patient states he is here looking for relief of his acute on chronic pain. Patient has no other associated symptoms. He states he has chronic pain in his leg to his cancer which is managed with gabapentin, oxycodone, morphine which is prescribed by his oncologist. He is currently not receiving treatment for his cancer but he does follow up with oncology services. Patient denies fever, chest pain, shortness of breath, abdominal pain, pain with urination.patient has a history of smoking. - History of Current Complaint Stated Complaint: GROIN PAIN PER EMS Time Seen by Provider: 08/28/19 16:15 Hx Obtained From: Patient Onset of Pain: Prior to Arrival Onset/Duration: Still Present Severity Initially: Severe Severity Currently: Severe Pain Intensity: 10 Pain Scale Used: 0-10 Numeric Timing: Constant Character Of Pain: Sharp Associated Signs And Symptoms: Positive: Weakness - Weakness due to pain Aggravating Factor(s): Standing, Ambulation Alleviating Factor(s): Other - Prescription pain medicine including oxycodone, morphine, gabapentin prescribed by the patient's oncologist Able to Bear Weight: Yes - Allergies/Home Medications Allergies/Adverse Reactions: Allergies Allergy/AdvReac Type Severity Reaction Status Date / Time No Known Allergies Allergy Verified 08/28/19 16:21 Home Medications: Home Medications Ferrous Gluconate TAB* [Fergon TAB*] 325 mg PO BID 08/28/19 [History Confirmed 08/28/19] Furosemide TAB* [Lasix TAB*] 20 mg PO EVERY OTHER DAY 08/28/19 [History Confirmed 08/28/19] Gabapentin CAP(*) [Neurontin 400 mg CAP(*)] 400 mg PO BEDTIME 08/28/19 [History Confirmed 08/28/19] Lisinopril [Lisinopril 30 MG-] 30 mg PO DAILY 08/28/19 [History Confirmed ] Torsemide TAB* [Demadex*] 20 mg PO EVERY OTHER DAY 08/28/19 [History Confirmed 08/28/19] amLODIPine TAB* [Norvasc 5 mg TAB*] 5 mg PO DAILY 08/28/19 [History Confirmed ] PMH/Surg Hx/FS Hx/Imm Hx Endocrine/Hematology History: Reports: Hx Diabetes - DMII Cardiovascular History: Reports: Hx Hypertension Denies: Hx Pacemaker/ICD, Other Cardiovascular Problems/Disorders Respiratory History: Denies: Other Respiratory Problems/Disorders GI History: Reports: Hx Ulcer - "PRE ULCERAL CONDITION" Denies: Other GI Disorders History: Reports: Other Problems/Disorders - 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 Denies: Hx Renal Disease Musculoskeletal History: Reports: Other Musculoskeletal History - CHRONIC OSTEOMYELITIS, FOOT WOUND, BONE METS- SKULL & RIBS Sensory History: Reports: Hx Cataracts - EARLY STAGES, Hx Contacts or Glasses - GLASSES Denies: Hx Hearing Aid Opthamlomology History: Reports: Hx Cataracts - EARLY STAGES, Hx Contacts or Glasses - GLASSES Neurological History: Reports: Hx Migraine - NOT IN 16 YEARS, Other Neuro Impairments/Disorders - DIABETIC NEUROPATHY Psychiatric History: Reports: Hx Anxiety - ON MEDICATION, (STATES HE HAD A NERVOUS BREAKDOWN), Hx Depression - ON MEDICATION Denies: Hx Panic Disorder - Cancer History Cancer Type, Location and Year: 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 1963-SEVERED LEFT RING FINGER REATTACHED. 1967 TONSILS. 1992-HEMORROIDECTOMY. 2004- VENEREAL WARTS REMOVED. 10/2017 - Lt FOOT - 4TH TOE AMPUTATED & 02/2018 - 3RD TOE AMPUTATED Hx Anesthesia Reactions: No Infectious Disease History: No Infectious Disease History: Denies: Traveled Outside the [place] in Last 30 Days - Family History Known Family History: Positive: Unknown - pt is adopted - Social History Alcohol Use: Daily Alcohol Amount: 1 BEER Hx Substance Use: No Substance Use Type: Reports: None Hx Tobacco Use: Yes Smoking Status (MU): Current Every Day Smoker Type: Pipe Amount Used/How Often: 3-4 PIPES PER DAY Have You Smoked in the Last Year: Yes Review of Systems Constitutional: Negative Eyes: Negative Cardiovascular: Negative Respiratory: Negative Gastrointestinal: Negative Positive: Myalgia - 10 out of 10 pain to the left lower extremity and pelvis Skin: Negative Negative: Bruising Positive: Weakness - weakness only due to pain. Negative: Numbness Psychological: Normal All Other Systems Reviewed And Are Negative: Yes Physical Exam Triage Information Reviewed: Yes Vital Signs On Initial Exam: Initial Vitals Temp Pulse Resp BP Pulse Ox 100 F 84 18 146/77 98 08/28/19 16:16 08/28/19 16:16 08/28/19 16:16 08/28/19 16:16 08/28/19 16:16 Vital Signs Reviewed: Yes Appearance: Positive: Well-Nourished, Pain Distress Skin: Positive: Warm, Skin Color Reflects Adequate Perfusion, Pale - Likely due to history of cancer and anemia Head/Face: Positive: Normal Head/Face Inspection Eyes: Positive: Normal, EOMI ENT: Positive: Hearing grossly normal Respiratory/Lung Sounds: Positive: Clear to Auscultation, Breath Sounds Present Cardiovascular: Positive: Normal, RRR, S1, S2 Abdomen Description: Positive: Nontender Bowel Sounds: Positive: Present - Normoactive Musculoskeletal: Positive: Strength/ROM Intact - Decreased range of motion with left lower extremity due to pain, Pain @ - Left lower extremity and pelvis 11 Psychiatric: Positive: Normal AVPU Assessment: Alert Procedures - Sedation Patient Received Moderate/Deep Sedation with Procedure: No Diagnostics - Vital Signs Vital Signs Temp Pulse Resp BP Pulse Ox 08/28/19 16:16 100 F 84 18 146/77 98 - Laboratory Result Diagrams: 08/28/19 16:50 08/28/19 16:50 Lab Statement: Any lab studies that have been ordered have been reviewed, and results considered in the medical decision making process. Lower Extremity Course/Dx - Course Course Of Treatment: Patient was evaluated for left lower extremity and pelvic pain in the emergency department. The patient was seen and evaluated. Laboratory results and an IV were established. Patient was treated with IV morphine and Zofran for pain relief. Laboratory results returned showing evidence of anemia and elevated alkaline phosphatase level of 733this is expected due to the patients history of stage IV prostate cancer. He is also found to be mildly hyponatremic at a level of 132 this can be managed by mouth. His BUNs/creatinine ratio as well as AST are elevated but this is his baseline due to his chronic medical conditions. Urinalysis returned showing 2+ protein 3 + urine blood trace leukocyte esterase 3+ white blood cells. The patients past medical history of stage IV prostate cancer as well as his renal function was considered and it is likely that he does have a UTI. A prescription for Keflex 500 mg to be taken twice a day will be prescribed as an outpatient to be taken for 7 days. X-ray of the left lower extremity and pelvis revealed no evidence of acute fracture. Patient was evaluated by staff and was able to walk with mild discomfort and with competence using his cane. Patient was able to ambulate to the restroom. Due to the patient being of ambulate he can be discharged home and followed up with his primary care provider or the oncology for further evaluation of his pain. Patient agrees with this plan. Patient was made aware to return to the emergency department immediately if he experiences any new or worsening symptoms. - Diagnoses Differential Diagnosis/HQI/PQRI: Positive: Arthritis, Contusion, Fracture ( Closed), Other - Acute on chronic pain due to metastatic prostate cancer to the pelvis Provider Diagnoses: Cancer associated pain Discharge ED - Sign-Out/Discharge Documenting (check all that apply): Patient Departure - Discharge Plan Condition: Improved Disposition: HOME Prescriptions: Cephalexin CAP* [Keflex CAP*] 500 mg PO BID #14 cap Patient Education Materials: Urinary Tract Infection in Men (ED) Referrals: Yanci Jhaveri MD [Primary Care Provider] - Mike Dixon MD [Medical Doctor] - As Soon As Possible Additional Instructions: You were seen in the emergency department today for increased pain due to a chronic medical condition. Your pain was acutely managed here in the emergency department but it is important that you follow up with your prescribing physician for adjustment of your pain medication in order to manage your increased chronic pain. Do not drive, operate machinery or drink while taking or under the influence of narcotic medication. Return to activity as tolerated. Use your walker for symptom management while ambulating. If your symptoms worsen or he develop any new symptoms please return to the emergency room immediately. - Billing Disposition and Condition Condition: IMPROVED Disposition: Home - Attestation Statements Provider Attestation: pt seen by midlevel provider independently, based on their assessment, it was not necessary to present the case to me but I was available for consultation. I did not form a physician-patient relationship with the patient. The chart however, has been reviewed. am signing this note strictly in an administrative capacity.
[2019-08-28 17:12] LABS: Albumin 3.5 g/dL (3.2-5.2); Albumin/Globulin Ratio 1.3 (1-3); BUN/Creatinine Ratio 33.3 (8-20); Calcium 8.6 mg/dL (8.6-10.3); EGFR African American 160.7 (>60); EGFR Non-African American 132.8 (>60); Globulin 2.8 g/dL (2-4); Potassium 4.2 mmol/L (3.5-5.0); Total Bilirubin 0.4 mg/dL (0.2-1.0); Total Protein 6.3 g/dL (6.4-8.9)
[2019-08-28 17:31] LABS: Urine Appearance Cloudy; Urine Bacteria Absent (Absent); Urine Bilirubin Negative (Negative); Urine Blood 3+ (Negative); Urine Color Yellow; Urine Glucose Negative (Negative); Urine Ketones Negative (Negative); Urine Nitrite Negative (Negative); Urine Protein 2+(100 mg/dL) (Negative); Urine Red Blood Cell 3+(>10/hpf) (Absent); Urine Specific Gravity 1.015 (1.010-1.030); Urine Urobilinogen Negative (Negative); Urine White Blood Cell 3+(>20/hpf) (Absent)
[2019-08-28 18:51] VITALS: BP 139/78
== END 2019-08-28 18:50 | disposition home or self-care (01) ==
LOC: ED 16:11
DX: G89.3 Neoplasm related pain (acute) (chronic) (principal); C61 Malignant neoplasm of prostate; C79.51 Secondary malignant neoplasm of bone; E11.9 Type 2 diabetes mellitus without complications; I10 Essential (primary) hypertension; M86.60 Other chronic osteomyelitis, unspecified site; F41.9 Anxiety disorder, unspecified; F32.9 Major depressive disorder, single episode, unspecified; F17.290 Nicotine dependence, other tobacco product, uncomplicated; Z79.899 Other long term (current) drug therapy
CPT/HCPCS: 36415; 80053; 81003; 81015; 85025; 87086; 96374; 96375; 99282; J2270; J2405

== ENCOUNTER 2019-09-10 15:01 | Emergency (ER) | payer MEDICARE, MEDICAID ==
[2019-09-10] MEDS ORDERED: oxyCODONE TAB* 5 MG TAB PO ONE (15:27)
[2019-09-10] MEDS ORDERED: oxyCODONE/Acetamin 5/325 MG* TAB PO ONE (15:28)
[2019-09-10 16:03] VITALS: BP 143/63
--- NOTE | 2019-09-10 16:26 | ED ---
Complex/Multi-Sys Presentation - HPI Summary HPI Summary: 69 year old M [place] [facility] the suggestion of his oncologist, , for pain medication refill. He reports that he has been without pain medications for the past two days. The patient reports a history of prostate cancer for which he is on Percocet and Morphine PRN. He also notes foot infection for which he is on Cephalexin and treated by Dr. Howard at [facility] [place]. He reports urinary tract infection as well. Patient denies fevers. - History Of Current Complaint Chief Complaint: EDMedicationRefill Time Seen by Provider: 09/10/19 15:17 Hx Obtained From: Patient Onset/Duration: Lasting Days Timing: Constant Severity Currently: None Aggravating Factor(s): nothing Alleviating Factor(s): nothing Associated Signs And Symptoms: Positive: Other - toe and urinary infection, medication refill - Allergies/Home Medications Allergies/Adverse Reactions: Allergies Allergy/AdvReac Type Severity Reaction Status Date / Time No Known Allergies Allergy Verified 09/10/19 15:03 Home Medications: Home Medications Leuprolide INJ [Eligard INJ] 1 admin IM [id number] 09/10/19 [History Confirmed ] PMH/Surg Hx/FS Hx/Imm Hx Endocrine/Hematology History: Reports: Hx Diabetes - DMII Cardiovascular History: Reports: Hx Hypertension Denies: Hx Pacemaker/ICD, Other Cardiovascular Problems/Disorders Respiratory History: Denies: Other Respiratory Problems/Disorders GI History: Reports: Hx Ulcer - "PRE ULCERAL CONDITION" Denies: Other GI Disorders History: Reports: Other Problems/Disorders - 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 Denies: Hx Renal Disease Musculoskeletal History: Reports: Other Musculoskeletal History - CHRONIC OSTEOMYELITIS, FOOT WOUND, BONE METS- SKULL & RIBS Sensory History: Reports: Hx Cataracts - EARLY STAGES, Hx Contacts or Glasses - GLASSES Denies: Hx Hearing Aid Opthamlomology History: Reports: Hx Cataracts - EARLY STAGES, Hx Contacts or Glasses - GLASSES Neurological History: Reports: Hx Migraine - NOT IN 16 YEARS, Other Neuro Impairments/Disorders - DIABETIC NEUROPATHY Psychiatric History: Reports: Hx Anxiety - ON MEDICATION, (STATES HE HAD A NERVOUS BREAKDOWN), Hx Depression - ON MEDICATION Denies: Hx Panic Disorder - Cancer History Cancer Type, Location and Year: 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 1963-SEVERED LEFT RING FINGER REATTACHED. 1967 TONSILS. 1992-HEMORROIDECTOMY. 2004- VENEREAL WARTS REMOVED. 10/2017 - Lt FOOT - 4TH TOE AMPUTATED & 02/2018 - 3RD TOE AMPUTATED Hx Anesthesia Reactions: No Infectious Disease History: Yes Infectious Disease History: Denies: Traveled Outside the [place] in Last 30 Days - Family History Known Family History: Positive: Unknown - pt is adopted - Social History Alcohol Use: Daily Alcohol Amount: 1 BEER Hx Substance Use: No Substance Use Type: Reports: None Hx Tobacco Use: Yes Smoking Status (MU): Current Every Day Smoker Type: Pipe Amount Used/How Often: 3-4 PIPES PER DAY Have You Smoked in the Last Year: Yes Review of Systems Constitutional: Other - presents for pain medication refill Negative: Fever Positive: other - urinary tract infection Positive: Other - toe infection All Other Systems Reviewed And Are Negative: Yes Physical Exam - Summary Physical Exam Summary: General: Well appearing, no distress HEENT: PERRL Cardiovascular: Skin is well perfused Pulmonary: No respiratory distress, no tachypnea Abdomen: Non-distended Skin: Warm, pink, dry MSK: left foot in walking boot Psych: Normal affect Neuro: A&Ox3 Triage Information Reviewed: Yes Vital Signs On Initial Exam: Initial Vitals Temp Pulse Resp BP Pulse Ox 98.1 F 65 15 111/56 95 09/10/19 15:02 09/10/19 15:02 09/10/19 15:02 09/10/19 15:02 09/10/19 15:02 Vital Signs Reviewed: Yes Procedures - Sedation Patient Received Moderate/Deep Sedation with Procedure: No Diagnostics - Vital Signs Vital Signs Temp Pulse Resp BP Pulse Ox 09/10/19 16:01 97.6 F 67 20 143/63 95 09/10/19 15:37 20 09/10/19 15:02 98.1 F 65 15 111/56 95 - Laboratory Lab Statement: Any lab studies that have been ordered have been reviewed, and results considered in the medical decision making process. Complex Multi-Symp Course/Dx Course Of Treatment: 69 y/o male w hx metastatic prostate cx presents for medication refill for pain medicatons. - refilled oxy and morphine for 3 days, told to follow up with onc regarding additional refills. - Diagnoses Provider Diagnoses: Medication refill, Prostate cancer Discharge ED - Sign-Out/Discharge Documenting (check all that apply): Patient Departure - discharge - Discharge Plan Condition: Stable Disposition: HOME Patient Education Materials: Opioid Safety (ED) Referrals: Mike Dixon MD [Medical Doctor] - Yanci Jhaveri MD [Primary Care Provider] - Additional Instructions: Please follow up with your oncologist for your pain medication refills. - Billing Disposition and Condition Condition: STABLE Disposition: Home - Attestation Statements Document Initiated by Sean: Yes Documenting Scribe: CARLOS GIFFORD Provider For Whom Sean is Documenting (Include Credential): TYREL KIM MD Scribe Attestation: CARLOS Hoover, scribed for TYREL KIM MD on 09/10/19 at 1702. Scribe Documentation Reviewed: Yes Provider Attestation: The documentation as recorded by the CARLOS stephenson accurately reflects the service I personally performed and the decisions made by , TYREL KIM MD Status of Scribe Document: Viewed
== END 2019-09-10 15:43 | disposition home or self-care (01) ==
LOC: ED 15:01
DX: C61 Malignant neoplasm of prostate (principal); C79.51 Secondary malignant neoplasm of bone; Z76.0 Encounter for issue of repeat prescription; L08.9 Local infection of the skin and subcutaneous tissue, unspecified; N39.0 Urinary tract infection, site not specified; E11.9 Type 2 diabetes mellitus without complications; I10 Essential (primary) hypertension; F41.9 Anxiety disorder, unspecified; F32.9 Major depressive disorder, single episode, unspecified; Z89.422 Acquired absence of other left toe(s); F17.290 Nicotine dependence, other tobacco product, uncomplicated
CPT/HCPCS: 99282; A9270-GY

== ENCOUNTER 2019-10-07 15:59 | Inpatient (IN) | payer MEDICARE, MEDICAID ==
[2019-10-07] MEDS: Pantoprazole IV* 40 MG IV SCH (18:29)
[2019-10-07] MEDS: FLUoxetine CAP* 20 MG PO SCH (18:30)
[2019-10-07] MEDS: Atorvastatin* 80 MG TAB PO SCH (18:30)
[2019-10-07] MEDS ORDERED: Gadoteridol* (CONTRAST) 279.3 MG/ML 10 ML IV ONE (19:50)
[2019-10-07] MEDS: Gabapentin CAP(*) 400 MG PO SCH (21:30)
[2019-10-07] MEDS: Morphine TAB Extended Release (*) 30 MG TAB.ER PO SCH (21:32)
[2019-10-07] MEDS: oxyCODONE/Acetamin 5/325 MG* TAB PO PRN (23:16)
[2019-10-07 23:21] LABS: Urine Appearance Cloudy; Urine Bilirubin Negative (Negative); Urine Blood 3+ (Negative); Urine Glucose Negative (Negative); Urine Ketones Negative (Negative); Urine Nitrite Negative (Negative); Urine Protein 2+(100 mg/dL) (Negative); Urine Specific Gravity 1.011 (1.010-1.030); Urine Urobilinogen Negative (Negative)
[2019-10-07 23:23] LABS: Urine Bacteria 1+ (Absent); Urine Red Blood Cell 3+(>10/hpf) (Absent); Urine Squamous Epithelial Cell Present (Absent); Urine White Blood Cell 3+(>20/hpf) (Absent)
[2019-10-07 23:26] LABS: Urine Color Red
[2019-10-08] MEDS: NS 0.9% 1000 ML** 1,000 ML IV SCH ×2 (00:30→21:33)
[2019-10-08 06:02] LABS: ABS Eosinophils 0.1 10^3/ul (0-0.6); ABS Lymphocytes 0.9 10^3/ul (1.0-4.8); ABS Monocytes 0.3 10^3/ul (0-0.8); ABS Neutrophils 2.2 10^3/ul (1.5-7.7); Eosinophil % 3.3 %; Hematocrit 20 % (42-52); Hemoglobin 6.6 g/dL (14.0-18.0); Lymphocyte % 24.9 %; Mean Corpuscular HGB Conc 34 g/dL (31-36); Mean Corpuscular Hemoglobin 31 pg (27-31); Mean Corpuscular Volume 92 fL (80-94); Mean Platelet Volume 6.4 fL (7.4-10.4); Platelet Count 170 10^3/uL (150-450); Red Blood Count 2.13 10^6 /uL (4.18-5.48); Red Cell Distribution Width 20 % (10-15); White Blood Count 3.6 10^3/uL (3.5-10.8)
[2019-10-08] MEDS: Multivitamins/Minerals TAB PO SCH (08:28)
[2019-10-08] MEDS: Morphine TAB Extended Release (*) 30 MG TAB.ER PO SCH ×3 (08:28→21:26)
[2019-10-08] MEDS: Lisinopril TAB* 10 MG PO SCH (08:28)
[2019-10-08] MEDS: amLODIPine TAB* 5 MG PO SCH (08:29)
[2019-10-08] MEDS: Pantoprazole IV* 40 MG IV SCH (08:29)
[2019-10-08] MEDS: oxyCODONE/Acetamin 5/325 MG* TAB PO PRN ×2 (08:42→21:25)
[2019-10-08 10:14] LABS: Albumin 2.8 g/dL (3.2-5.2); Albumin/Globulin Ratio 1.5 (1-3); BUN/Creatinine Ratio 25.3 (8-20); Calcium 7.8 mg/dL (8.6-10.3); EGFR Non-African American 96.7 (>60); Globulin 1.9 g/dL (2-4); Potassium 3.7 mmol/L (3.5-5.0); Total Bilirubin 0.3 mg/dL (0.2-1.0); Total Protein 4.7 g/dL (6.4-8.9)
[2019-10-08] MEDS: Atorvastatin* 80 MG TAB PO SCH (18:20)
[2019-10-08] MEDS: FLUoxetine CAP* 20 MG PO SCH (18:20)
[2019-10-08] MEDS: Gabapentin CAP(*) 400 MG PO SCH (21:26)
[2019-10-09 05:59] LABS: ABS Eosinophils 0.1 10^3/ul (0-0.6); ABS Lymphocytes 0.9 10^3/ul (1.0-4.8); ABS Monocytes 0.4 10^3/ul (0-0.8); ABS Neutrophils 3.6 10^3/ul (1.5-7.7); Eosinophil % 2.1 %; Hematocrit 24 % (42-52); Hemoglobin 8.1 g/dL (14.0-18.0); Lymphocyte % 17.5 %; Mean Corpuscular HGB Conc 34 g/dL (31-36); Mean Corpuscular Hemoglobin 31 pg (27-31); Mean Corpuscular Volume 92 fL (80-94); Mean Platelet Volume 6.9 fL (7.4-10.4); Nucleated Red Blood Cells % 0.2; Platelet Count 175 10^3/uL (150-450); Red Blood Count 2.59 10^6 /uL (4.18-5.48); Red Cell Distribution Width 20 % (10-15); White Blood Count 5.1 10^3/uL (3.5-10.8)
[2019-10-09] MEDS: Pantoprazole IV* 40 MG IV SCH ×2 (10:05→10:31)
[2019-10-09] MEDS: Multivitamins/Minerals TAB PO SCH (10:06)
[2019-10-09] MEDS: Morphine TAB Extended Release (*) 30 MG TAB.ER PO SCH ×3 (10:06→21:21)
[2019-10-09] MEDS: Lisinopril TAB* 10 MG PO SCH (10:06)
[2019-10-09] MEDS: amLODIPine TAB* 5 MG PO SCH (10:06)
--- NOTE | 2019-10-09 10:24 | PN ---
Progress Note - Progress Note Date of Service: 10/09/19 SOAP: Subjective: [Some trouble with Jacobs flow overnight and this morning, but relieved with irrigation of a few old clots. Feels better since admission. He discussed direction of care with Dr Dixon at length yesterday. He requires GI evaluation and BMBx to eval cause of his profound and progressive anemia, neither of which he is agreeable to. Additionally he has this new onset L arm weakness after a fall ~ 1 week ago. XR of the wrist was negative and recommended MRI of the brain and Cspine. He completed the non-contrast portion of the brain but refused to continue the test due to the noise of the machine. However, he continues to be concerned about the status of his hand as it is his dominant side and finds a great deal of jonas from writing. ] Objective: [ Vital Signs: Temp Pulse Resp BP Pulse Ox 98.1 F 57 18 132/43 98 10/09/19 03:30 10/09/19 03:30 10/09/19 10:06 10/09/19 03:30 10/09/19 03:30 Amlodipine Besylate (Norvasc Tab*) 10 mg PO DAILY [facility] Last Admin: 10/09/19 10:06 Dose: 10 mg Atorvastatin Calcium (Lipitor*) 80 mg PO QPM [facility] Last Admin: 10/08/19 18:20 Dose: 80 mg Fluoxetine HCl (Prozac Cap*) 20 mg PO QPM [facility] Last Admin: 10/08/19 18:20 Dose: 20 mg Gabapentin (Neurontin Cap(*)) 400 mg PO BEDTIME [facility] Last Admin: 10/08/19 21:26 Dose: 400 mg Sodium Chloride (Ns 0.9% 1000 Ml) 1,000 mls @ 75 mls/hr IV PER RATE [facility] Last Admin: 10/08/19 21:33 Dose: 75 mls/hr Lisinopril (Prinivil Tab*) 20 mg PO DAILY [facility] Last Admin: 10/09/19 10:06 Dose: 20 mg Morphine Sulfate (Ms Contin(*)) 30 mg PO TID [facility] Last Admin: 10/09/19 10:06 Dose: 30 mg Multivitamins/Minerals (Theragran/Minerals Tab*) 1 tab PO DAILY [facility] Last Admin: 10/09/19 10:06 Dose: 1 tab Oxycodone/Acetaminophen (Percocet 5/325 Tab*) 1 tab PO Q4H PRN PRN Reason: PAIN - MODERATE Last Admin: 10/08/19 21:25 Dose: 1 tab Pantoprazole Sodium (Protonix Iv*) 40 mg IV DAILY [facility] Last Admin: 10/09/19 10:05 Dose: 40 mg Laboratory Results - last 24 hr 10/06/19 10/08/19 10/09/19 14:20 09:25 05:45 WBC 5.1 RBC 2.59 L Hgb 8.1 L Hct 24 L MCV 92 MCH 31 MCHC 34 RDW 20 H Plt Count 175 MPV 6.9 L Neut % (Auto) 71.1 Lymph % (Auto) 17.5 [place] % (Auto) 8.9 Eos % (Auto) 2.1 Baso % (Auto) 0.4 Absolute Neuts (auto) 3.6 Absolute Lymphs (auto) 0.9 L Absolute Monos (auto) 0.4 Absolute Eos (auto) 0.1 Absolute Basos (auto) 0.0 Absolute Nucleated RBC 0.0 Nucleated RBC % 0.2 Sodium 140 Potassium 3.7 Chloride 116 H Carbon Dioxide 15 L Anion Gap 9 BUN 20 Creatinine 0.79 Est GFR ( Amer) 117.0 Est GFR (Non-Af Amer) 96.7 BUN/Creatinine Ratio 25.3 H Glucose 187 H Calcium 7.8 L Total Bilirubin 0.30 AST 30 ALT 7 Alkaline Phosphatase 483 H Total Protein 4.7 L Albumin 2.8 L Globulin 1.9 L Albumin/Globulin Ratio 1.5 Crossmatch See Detail Exam: Gen: chronically ill appearing 69 yo male in NAD HEENT: MMM CV:RRR, no m/r/g Resp: CTA, no w/c/r Abd: soft, nonTTP Ext: LEs wrapped to the knee, no edema of upper extremity, but unable to extend the wrist or fingers on the left side] Assessment: [This is a 69 yo male with metastatic prostate CA with progressive, bony only disease who has been off of therapy beyond andogren deprivation for nearly 2 years now. He presented with acute urinary retention, progressive anemia and new onset L arm/wrist weakness. He seems to be having difficulty confronting the reality of his situation which includes a significant decline in his general health. He has been living independently and is generally a social recluse. The thought of requiring a [facility] nursing facility is an an awful thought for him. He does not have the financial means to hire additional aid support. He is open to the idea of Hospice as this in line with his desires for limited interventions. Despite his initial refusal to complete the MRI he is now agreeable with Valium and ear plugs. Plan: [1. Anemia, normocytic - no initial improvement with 1U PRBCs, but this may have been a somewhat dilutional effect as his Hbg nati from 6.6 to 8.1 g/dl after one additional unit of PRBCs - Ddx. acute blood loss secondary to hematuria or GIB, iron/B12 deficiency, primary bone marrow process - check iron/B12 studies - cont to monitor daily - collect stool for occult blood testing 2. Acute urinary retention secondary to outlet obstruction from enlarged prostate - anticipate need for lifelong Jacobs catheter - pt is not agreeable to TURP 3. L arm weakness - non-contrasted MRI of the brain shows a possible old infarct and bony disease within the skull, but no obvious intracranial process to explain the L arm weakness - he is now agreeable to retry the MRI with the use of a benzo and ear plugs - reordered the contrast enhanced portion of the brain and CSpine with and without contrast - requested PT and OT consultation 4. Prostate CA - lupron only therapy - pt declines further treatment Dispo: palliative consultation pending, MRI pending. Anticipate need for a correction facility, but I do not believe patient will be agreeable to this. Will work with CM to see what options exist for enhanced home care. I am unsure if he would be considered an appropriate candidate for home hospice with a more robust support structure. ]
[2019-10-09 11:54] LABS: % Iron Saturation 12 % (15-55); Iron 26 ug/dL (50-212); Total Iron Binding Capacity 216 mcg/dL (250-450); Transferrin 154 mg/dL (203-362)
--- NOTE | 2019-10-09 11:56 | CONSULT ---
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 He tells me he has had hematuria for about 18 months which he attributes to chemotherapy. At this point he says he wants to continue on anti- androgen therapy which he has been on since diagnosis. He also wants to remain at home, and worries about medical expenses, although he has coverage with Medicare and Medicaid. Mr. Avalos denies any uncontrolled symptoms at this time , other than malaise and fatigue. He says he has never had pain attributable to metastatic disease in his bones, but is using oxycodone and morphine regularly. He has "spasms" of his LEs which are not painful but bothersome, and which interrupt his conversations frequently. He experienced a fall in the bathtub about a month ago, and has been unable to use his left hand since that time, as he has weakness of dorsiflexion of the left wrist, similar to a radial nerve injury effect. The patient had a long conversation with Dr. Dixon about options yesterday. When I asked him which options were discussed, he admitted that he could not remember, and says he has had a problem with his short-term memory for quite some time. He relates a history of being administered LSD three times weekly for 18 months while a student at [employer] in [place] 55 years ago, as part of an experiment. We discussed advanced directives and I had his MOLST form witnessed at the bedside before he could forget what he had decided. Lab Values: Abnormal Lab Results 10/06/19 10/09/19 14:20 05:45 WBC 5.1 RBC 2.59 L Hgb 8.1 L Hct 24 L MCV 92 MCH 31 MCHC 34 RDW 20 H Plt Count 175 MPV 6.9 L Neut % (Auto) 71.1 Lymph % (Auto) 17.5 Mora % (Auto) 8.9 Eos % (Auto) 2.1 Baso % (Auto) 0.4 Absolute Neuts (auto) 3.6 Absolute Lymphs (auto) 0.9 L Absolute Monos (auto) 0.4 Absolute Eos (auto) 0.1 Absolute Basos (auto) 0.0 Absolute Nucleated RBC 0.0 Nucleated RBC % 0.2 Crossmatch See Detail Laboratory Last Values WBC 5.1 10^3/uL (3.5-10.8) 10/09/19 05:45 RBC 2.59 10^6 /uL (4.18-5.48) L 10/09/19 05:45 Hgb 8.1 g/dL (14.0-18.0) L 10/09/19 05:45 Hct 24 % (42-52) L 10/09/19 05:45 MCV 92 fL (80-94) 10/09/19 05:45 MCH 31 pg (27-31) 10/09/19 05:45 MCHC 34 g/dL (31-36) 10/09/19 05:45 RDW 20 % (10-15) H 10/09/19 05:45 Plt Count 175 10^3/uL (150-450) 10/09/19 05:45 MPV 6.9 fL (7.4-10.4) L 10/09/19 05:45 Neut % (Auto) 71.1 % 10/09/19 05:45 Lymph % (Auto) 17.5 % 10/09/19 05:45 Mora % (Auto) 8.9 % 10/09/19 05:45 Eos % (Auto) 2.1 % 10/09/19 05:45 Baso % (Auto) 0.4 % 10/09/19 05:45 Absolute Neuts (auto) 3.6 10^3/ul (1.5-7.7) 10/09/19 05:45 Absolute Lymphs (auto) 0.9 10^3/ul (1.0-4.8) L 10/09/19 05:45 Absolute Monos (auto) 0.4 10^3/ul (0-0.8) 10/09/19 05:45 Absolute Eos (auto) 0.1 10^3/ul (0-0.6) 10/09/19 05:45 Absolute Basos (auto) 0.0 10^3/ul (0-0.2) 10/09/19 05:45 Absolute Nucleated RBC 0.0 10^3/ul 10/09/19 05:45 Nucleated RBC % 0.2 10/09/19 05:45 Sodium 140 mmol/L (135-145) 10/08/19 09:25 Potassium 3.7 mmol/L (3.5-5.0) 10/08/19 09:25 Chloride 116 mmol/L (101-111) H 10/08/19 09:25 Carbon Dioxide 15 mmol/L (22-32) L 10/08/19 09:25 Anion Gap 9 mmol/L (2-11) 10/08/19 09:25 BUN 20 mg/dL (6-24) 10/08/19 09:25 Creatinine 0.79 mg/dL (0.67-1.17) 10/08/19 09:25 Est GFR ( Amer) 117.0 (>60) 10/08/19 09:25 Est GFR (Non-Af Amer) 96.7 (>60) 10/08/19 09:25 BUN/Creatinine Ratio 25.3 (8-20) H 10/08/19 09:25 Glucose 187 mg/dL (70-100) H 10/08/19 09:25 Calcium 7.8 mg/dL (8.6-10.3) L 10/08/19 09:25 Total Bilirubin 0.30 mg/dL (0.2-1.0) 10/08/19 09:25 AST 30 U/L (13-39) 10/08/19 09:25 ALT 7 U/L (7-52) 10/08/19 09:25 Alkaline Phosphatase 483 U/L (34-104) H 10/08/19 09:25 Total Protein 4.7 g/dL (6.4-8.9) L 10/08/19 09:25 Albumin 2.8 g/dL (3.2-5.2) L 10/08/19 09:25 Globulin 1.9 g/dL (2-4) L 10/08/19 09:25 Albumin/Globulin Ratio 1.5 (1-3) 10/08/19 09:25 Urine Color Red A 10/07/19 21:55 Urine Appearance Cloudy 10/07/19 21:55 Urine pH 5.0 (5-9) 10/07/19 21:55 Ur Specific [place] 1.011 (1.010-1.030) 10/07/19 21:55 Urine Protein 2+(100 mg/dl) (Negative) A 10/07/19 21:55 Urine Ketones Negative (Negative) 10/07/19 21:55 Urine Blood 3+ (Negative) A 10/07/19 21:55 Urine Nitrate Negative (Negative) 10/07/19 21:55 Urine Bilirubin Negative (Negative) 10/07/19 21:55 Urine Urobilinogen Negative (Negative) 10/07/19 21:55 Ur Leukocyte Esterase 1+ (Negative) A 10/07/19 21:55 Urine WBC (Auto) 3+(>20/hpf) (Absent) A 10/07/19 21:55 Urine RBC (Auto) 3+(>10/hpf) (Absent) A 10/07/19 21:55 Ur Squamous Epith Cells Present (Absent) A 10/07/19 21:55 Urine Bacteria 1+ (Absent) A 10/07/19 21:55 Urine Glucose Negative (Negative) 10/07/19 21:55 Crossmatch See Detail 10/06/19 14:20 - Objective Active Medications: Amlodipine Besylate (Norvasc Tab*) 10 mg PO DAILY [facility] Last Admin: 10/09/19 10:06 Dose: 10 mg Atorvastatin Calcium (Lipitor*) 80 mg PO QPM [facility] Last Admin: 10/08/19 18:20 Dose: 80 mg Diazepam (Valium Tab(*)) 5 mg PO ONCE ONE Stop: 10/09/19 13:01 Fluoxetine HCl (Prozac Cap*) 20 mg PO QPM [facility] Last Admin: 10/08/19 18:20 Dose: 20 mg Gabapentin (Neurontin Cap(*)) 400 mg PO BEDTIME [facility] Last Admin: 10/08/19 21:26 Dose: 400 mg Sodium Chloride (Ns 0.9% 1000 Ml) 1,000 mls @ 75 mls/hr IV PER RATE [facility] Last Admin: 10/08/19 21:33 Dose: 75 mls/hr Lisinopril (Prinivil Tab*) 20 mg PO DAILY [facility] Last Admin: 10/09/19 10:06 Dose: 20 mg Morphine Sulfate (Ms Contin(*)) 30 mg PO TID [facility] Last Admin: 10/09/19 10:06 Dose: 30 mg Multivitamins/Minerals (Theragran/Minerals Tab*) 1 tab PO DAILY [facility] Last Admin: 10/09/19 10:06 Dose: 1 tab Oxycodone/Acetaminophen (Percocet 5/325 Tab*) 1 tab PO Q4H PRN PRN Reason: PAIN - MODERATE Last Admin: 10/08/19 21:25 Dose: 1 tab Pantoprazole Sodium (Protonix Iv*) 40 mg IV DAILY [facility] Last Admin: 10/09/19 10:31 Dose: Not Given Vital Signs: Vital Signs: Temp Pulse Resp BP Pulse Ox 98.7 F 56 18 128/50 97 10/09/19 07:50 10/09/19 07:50 10/09/19 10:06 10/09/19 07:50 10/09/19 07:50 Patient Weight: Weight 187 lb 6.4 oz Intake and Output: Intake & Output 10/07/19 10/08/19 10/09/19 10/10/19 06:59 06:59 06:59 06:59 Intake Total 1284 4122 Output Total 1200 1350 Balance 84 2772 Weight 187 lb 6.4 oz Intake: IV Fluids 744 1593 NS (0.9%) 744 1593 Oral 540 2260 Packed Cells 269 Output: Jacobs 1200 1350 Other: Estimated Void Medium # Bowel Movements 0 0 Estimated Stool Amount Large # Voids 1 ADLs: Meal Record Start: 10/07/19 17: 29 Freq: DAILY@0900,1400,1800 Status: Active Protocol: Created 10/07/19 17:29 System (Rec: 10/07/19 17:29 System [facility]-[id number]) Document 10/07/19 18:00 [id number] (Rec: 10/07/19 22:41 [id number] MED-C26) Document 10/08/19 09:00 [id number] (Rec: 10/08/19 09:52 [id number] MED-C11) Document 10/08/19 14:00 [id number] (Rec: 10/08/19 15:07 [id number] MED-C11) Document 10/08/19 18:00 [id number] (Rec: 10/08/19 18:17 [id number] MED-C09) Intake and Output Start: 10/07/19 17: 29 Freq: DAILY@0600,1400,2200 Status: Active Protocol: Created 10/07/19 17:29 System (Rec: 10/07/19 17:29 System [email or web address]) Document 10/07/19 22:00 [id number] (Rec: 10/07/19 22:42 [id number] MED-C26) Document 10/08/19 05:23 [id number] (Rec: 10/08/19 05:23 [id number] MED-C11) Document 10/08/19 14:00 [id number] (Rec: 10/08/19 15:07 [id number] MED-C11) Document 10/08/19 19:55 [id number] (Rec: 10/08/19 22:04 [id number] MED-C05) Document 10/08/19 21:51 [id number] (Rec: 10/08/19 21:52 [id number] MED-C13) Document 10/09/19 06:00 [id number] (Rec: 10/09/19 06:20 [id number] MED-C09) Head: Symmetrical Eyes: No Scleral Icterus Ears/Nose/Mouth/Throat: Clear Oropharnyx Neck: Trachea Midline Cardiovascular: NL Sounds; No Murmurs; No JVD Respiratory: Symmetrical Chest Expansion and Respiratory Effort Abdominal: NL Sounds; No Tenderness; No Distention - Legs are wrapped. He has two toe amputations of the left foot. Extremities: - - Legs are wrapped. He has two toe amputations of the left foot. Other Findings: Left arm with intact strength of biceps, triceps, but 0/0 strength of wrist dorsiflexion. - Assessment Assessment: This patient has some memory problems and I also think he has some characterological issues clouding his ability to understand his illness. He denied any knowledge of having a terminal illness, but wanted hospice services in order to remain at home with support. On his MOLST form, he elected continued medical interventions and hospitalizations, as well as continued Lupron, so is not a candidate for hospice at this time, but I assured him there were other sources of support available, possibly through Medicaid. He wants to discuss with Dr. Dixon whether he should consider stopping Lupron, and he also thinks he may want to have a feeding tube at some time. He has an anemia with H/ H of 6.6/20 which warrants work-up to identify etiology; it is possibly due to longstanding hematuria if, as he claims, he has had gross hematuria for one and a half years.The patient would qualify for hospice services, with a diagnosis of disseminated prostate cancer with bony metastases, if he decided to remain at home and discontinued Lupron. His MOLST form is now in his chart. Thanks for requesting this consult! - Plan Consult Plan (MU): Palliative - Time On Unit Date of Evaluation: 10/09/19 Hospice Consult Time in: 11:00 Hospice Consult Time Out: 12:15 Hospice Consult Time Total: 75 > 50% of Time Spend In Counseling or Coordinating Care: Yes
[2019-10-09 12:14] LABS: Ferritin 207.3 ng/mL (24-336)
[2019-10-09] MEDS ORDERED: Diazepam TAB(*) 5 MG PO ONE (13:00)
[2019-10-09] MEDS: oxyCODONE/Acetamin 5/325 MG* TAB PO PRN (13:06)
[2019-10-09] MEDS: NS 0.9% 1000 ML** 1,000 ML IV SCH (13:07)
[2019-10-09] MEDS ORDERED: Gadoteridol* (CONTRAST) 279.3 MG/ML 10 ML IV ONE (18:51)
[2019-10-09] MEDS: FLUoxetine CAP* 20 MG PO SCH (19:02)
[2019-10-09] MEDS: Atorvastatin* 80 MG TAB PO SCH (19:02)
[2019-10-09] MEDS: Gabapentin CAP(*) 400 MG PO SCH (21:21)
[2019-10-10] MEDS: oxyCODONE/Acetamin 5/325 MG* TAB PO PRN ×2 (04:35→09:11)
[2019-10-10] MEDS: NS 0.9% 1000 ML** 1,000 ML IV SCH ×2 (05:00→17:41)
[2019-10-10 06:25] LABS: ABS Eosinophils 0.1 10^3/ul (0-0.6); ABS Lymphocytes 0.9 10^3/ul (1.0-4.8); ABS Monocytes 0.4 10^3/ul (0-0.8); ABS Neutrophils 3.8 10^3/ul (1.5-7.7); Eosinophil % 2.4 %; Hematocrit 23 % (42-52); Hemoglobin 7.7 g/dL (14.0-18.0); Mean Corpuscular HGB Conc 33 g/dL (31-36); Mean Corpuscular Hemoglobin 31 pg (27-31); Mean Corpuscular Volume 92 fL (80-94); Mean Platelet Volume 6.9 fL (7.4-10.4); Platelet Count 160 10^3/uL (150-450); Red Blood Count 2.51 10^6 /uL (4.18-5.48); Red Cell Distribution Width 20 % (10-15); White Blood Count 5.3 10^3/uL (3.5-10.8)
[2019-10-10 06:56] LABS: BUN/Creatinine Ratio 13.5 (8-20); Calcium 7.6 mg/dL (8.6-10.3); EGFR African American 189.6 (>60); EGFR Non-African American 156.7 (>60); Potassium 2.8 mmol/L (3.5-5.0)
[2019-10-10] MEDS: Lisinopril TAB* 10 MG PO SCH (09:00)
[2019-10-10] MEDS: Multivitamins/Minerals TAB PO SCH (09:00)
[2019-10-10] MEDS: Morphine TAB Extended Release (*) 30 MG TAB.ER PO SCH ×5 (09:01→23:08)
[2019-10-10] MEDS: Pantoprazole IV* 40 MG IV SCH (09:01)
[2019-10-10] MEDS: amLODIPine TAB* 5 MG PO SCH (09:01)
--- NOTE | 2019-10-10 10:34 | PN ---
Progress Note - Progress Note Date of Service: 10/10/19 SOAP: Subjective: []Frustrated that he isn't getting his pain meds like he does at home. States pain is generalized. Incontinent of stool during our exam stating "sometimes I just have to get there immediately or I'm in deep doodoo." Concerned that at home "will they all need to wear these blue gowns?" Medications: Amlodipine Besylate (Norvasc Tab*) 10 mg PO DAILY [facility] Last Admin: 10/10/19 09:01 Dose: 10 mg Atorvastatin Calcium (Lipitor*) 80 mg PO QPM [facility] Last Admin: 10/09/19 19:02 Dose: 80 mg Fluoxetine HCl (Prozac Cap*) 20 mg PO QPM [facility] Last Admin: 10/09/19 19:02 Dose: 20 mg Gabapentin (Neurontin Cap(*)) 400 mg PO BEDTIME [facility] Last Admin: 10/09/19 21:21 Dose: 400 mg Sodium Chloride (Ns 0.9% 1000 Ml) 1,000 mls @ 75 mls/hr IV PER RATE [facility] Last Admin: 10/10/19 05:00 Dose: 75 mls/hr Lisinopril (Prinivil Tab*) 20 mg PO DAILY [facility] Last Admin: 10/10/19 09:00 Dose: 20 mg Morphine Sulfate (Ms Contin(*)) 30 mg PO TID [facility] Last Admin: 10/10/19 09:01 Dose: 30 mg Multivitamins/Minerals (Theragran/Minerals Tab*) 1 tab PO DAILY [facility] Last Admin: 10/10/19 09:00 Dose: 1 tab Oxycodone/Acetaminophen (Percocet 5/325 Tab*) 1 tab PO Q4H PRN PRN Reason: PAIN - MODERATE Last Admin: 10/10/19 09:11 Dose: 1 tab Pantoprazole Sodium (Protonix Iv*) 40 mg IV DAILY [facility] Last Admin: 10/10/19 09:01 Dose: 40 mg Objective: [] Vital Signs Temp Pulse Resp BP Pulse Ox 98.9 F 56 18 150/56 95 10/10/19 07:30 10/10/19 07:30 10/10/19 09:11 10/10/19 07:30 10/10/19 07:30 Alert with scattered thought process, EOMI HRR LS clear Left arm weakness Left second toe with ulceration and dis-figured @ anterior aspect, puss present Bilat. legs with vianey dressings - per nursing open ulcerations @ calfs with slough Laboratory Results - last 24 hr 10/09/19 10/10/19 10/10/19 05:45 06:02 06:02 WBC 5.3 RBC 2.51 L Hgb 7.7 L Hct 23 L MCV 92 MCH 31 MCHC 33 RDW 20 H Plt Count 160 MPV 6.9 L Neut % (Auto) 71.7 Lymph % (Auto) 17.0 [place] % (Auto) 8.5 Eos % (Auto) 2.4 Baso % (Auto) 0.4 Absolute Neuts (auto) 3.8 Absolute Lymphs (auto) 0.9 L Absolute Monos (auto) 0.4 Absolute Eos (auto) 0.1 Absolute Basos (auto) 0.0 Absolute Nucleated RBC 0.0 Nucleated RBC % 0.0 Sodium 142 Potassium 2.8 L Chloride 115 H Carbon Dioxide 21 L Anion Gap 6 BUN 7 Creatinine 0.52 L Est GFR ( Amer) 189.6 Est GFR (Non-Af Amer) 156.7 BUN/Creatinine Ratio 13.5 Glucose 138 H Calcium 7.6 L Iron 26 L TIBC 216 L % Saturation 12 L Unsat Iron Binding < 201 Transferrin 154 L Ferritin 207.3 Vitamin B12 493 Assessment: []69 yo male with diffuse bone mets from prostate cancer presenting with gross hematuria and anemia of unclear source. His hematuria appears improved following catheter placement therefore this likely represented bladder outlet obstruction secondary from prostate, however he remains anemia and a stool occult has not been obtained. We will send this today. In term of his overall status he has declined dramatically over the last several months and has made it clear he does not want treatment for his cancer therefore we will plan to pursue hospice on discharge which he is motivated to attempt in his home. Plan: []1. Left arm weakness: Brain MRI negative for INTERMEDIATE MANAGER involvement - CT of neck with contast to eval. for spinal compression and potential benefit of palliative RT 2. Non-healing ulcer with possible osteomyelitis: plan for hospice therefore no aggressive interventions planned at this time - Daily dressing changes - wound consult pending 3. Hematuria: improved with clinton in place, will be chronic 4. Anemia: check occult stool, consider transfusion hmg <7 5. Hypokalemia: partially diluational - 40 mEq KCl IV today and d/c continuous fluids 6. Pain 2/2 bone mets: Increase pain meds today Dispo: home with hospice sign on next week, goal would be for signon within 24 hours of home
[2019-10-10] MEDS: KCL 20 MEQ/100 ML IVPREMIX* 20 MEQ/100 ML BAG IV SCH ×2 (11:57→14:36)
[2019-10-10] MEDS: oxyCODONE TAB* 5 MG TAB PO PRN (13:31)
[2019-10-10] MEDS: Atorvastatin* 80 MG TAB PO SCH (17:40)
[2019-10-10] MEDS: FLUoxetine CAP* 20 MG PO SCH (17:40)
[2019-10-10] MEDS: Gabapentin CAP(*) 400 MG PO SCH (21:04)
[2019-10-11] MEDS: oxyCODONE TAB* 5 MG TAB PO PRN ×2 (04:16→09:28)
[2019-10-11] MEDS ORDERED: Acetaminophen TAB* 325 MG PO PRN (09:12)
[2019-10-11] MEDS: Lisinopril TAB* 10 MG PO SCH (09:28)
[2019-10-11] MEDS: amLODIPine TAB* 5 MG PO SCH (09:29)
[2019-10-11] MEDS: Pantoprazole IV* 40 MG IV SCH (09:29)
[2019-10-11] MEDS: Multivitamins/Minerals TAB PO SCH (09:29)
[2019-10-11 09:46] LABS: ABS Eosinophils 0.1 10^3/ul (0-0.6); ABS Lymphocytes 0.6 10^3/ul (1.0-4.8); ABS Monocytes 0.4 10^3/ul (0-0.8); ABS Neutrophils 3.9 10^3/ul (1.5-7.7); Eosinophil % 2.1 %; Hematocrit 24 % (42-52); Hemoglobin 7.7 g/dL (14.0-18.0); Lymphocyte % 12.1 %; Mean Corpuscular HGB Conc 33 g/dL (31-36); Mean Corpuscular Hemoglobin 30 pg (27-31); Mean Corpuscular Volume 91 fL (80-94); Mean Platelet Volume 6.8 fL (7.4-10.4); Platelet Count 156 10^3/uL (150-450); Red Blood Count 2.61 10^6 /uL (4.18-5.48); Red Cell Distribution Width 19 % (10-15)
[2019-10-11 10:00] LABS: Albumin 2.7 g/dL (3.2-5.2); Albumin/Globulin Ratio 1.2 (1-3); BUN/Creatinine Ratio 10.6 (8-20); Calcium 7.5 mg/dL (8.6-10.3); EGFR Non-African American 176.1 (>60); Globulin 2.3 g/dL (2-4); Magnesium 1.4 mg/dL (1.9-2.7); Potassium 3.1 mmol/L (3.5-5.0); Total Bilirubin 0.3 mg/dL (0.2-1.0)
[2019-10-11] MEDS ORDERED: Magnesium Sulf 4 GM/100 ML IV* 4,000 MG/100 ML BAG IVPB ONE (11:06)
--- NOTE | 2019-10-11 11:52 | PN ---
Progress Note - Progress Note Date of Service: 10/11/19 SOAP: Subjective: [Doing ok this morning, but is complaining of a headache. No further trouble with the Clinton catheter. His L arm remains weak, no associated pain. Continues to desire limited interventions. He does not seem to completely understand the extent of his prostate CA.] Objective: [ Vital Signs: Temp Pulse Resp BP Pulse Ox 98.3 F 62 12 141/60 97 10/11/19 07:15 10/11/19 07:15 10/11/19 09:28 10/11/19 07:15 10/11/19 07:15 Acetaminophen (Tylenol Tab*) 650 mg PO Q6H PRN PRN Reason: PAIN - MILD Amlodipine Besylate (Norvasc Tab*) 10 mg PO DAILY [facility] Last Admin: 10/11/19 09:29 Dose: 10 mg Atorvastatin Calcium (Lipitor*) 80 mg PO QPM [facility] Last Admin: 10/10/19 17:40 Dose: 80 mg Fluoxetine HCl (Prozac Cap*) 20 mg PO QPM [facility] Last Admin: 10/10/19 17:40 Dose: 20 mg Gabapentin (Neurontin Cap(*)) 400 mg PO BEDTIME [facility] Last Admin: 10/10/19 21:04 Dose: 400 mg Magnesium Sulfate (Magnesium Sulf 4 Gm/100 Ml Iv*) 4,000 mg in 100 mls @ 33.333 mls/hr IVPB ONCE ONE Stop: 10/11/19 14:05 Lisinopril (Prinivil Tab*) 20 mg PO DAILY [facility] Last Admin: 10/11/19 09:28 Dose: 20 mg Morphine Sulfate (Ms Contin(*)) 30 mg PO TID@1000,1700,2300 [facility] Multivitamins/Minerals (Theragran/Minerals Tab*) 1 tab PO DAILY [facility] Last Admin: 10/11/19 09:29 Dose: 1 tab Oxycodone HCl (Roxycodone Tab*) 15 mg PO 1000,1700,2300 [facility] Pantoprazole Sodium (Protonix Iv*) 40 mg IV DAILY [facility] Last Admin: 10/11/19 09:29 Dose: 40 mg Potassium Chloride (Klor Con Er Tab*) 40 meq PO ONCE ONE Stop: 10/11/19 12:01 Prednisone (Deltasone Tab*) 60 mg PO DAILY [facility] Laboratory Results - last 24 hr 10/11/19 10/11/19 09:38 09:38 WBC 5.0 RBC 2.61 L Hgb 7.7 L Hct 24 L MCV 91 MCH 30 MCHC 33 RDW 19 H Plt Count 156 MPV 6.8 L Neut % (Auto) 77.3 Lymph % (Auto) 12.1 [place] % (Auto) 8.1 Eos % (Auto) 2.1 Baso % (Auto) 0.4 Absolute Neuts (auto) 3.9 Absolute Lymphs (auto) 0.6 L Absolute Monos (auto) 0.4 Absolute Eos (auto) 0.1 Absolute Basos (auto) 0.0 Absolute Nucleated RBC 0.0 Nucleated RBC % 0.0 Sodium 140 Potassium 3.1 L Chloride 110 Carbon Dioxide 24 Anion Gap 6 BUN 5 L Creatinine 0.47 L Est GFR ( Amer) 213.0 Est GFR (Non-Af Amer) 176.1 BUN/Creatinine Ratio 10.6 Glucose 131 H Calcium 7.5 L Magnesium 1.4 L Total Bilirubin 0.30 AST 27 ALT 7 Alkaline Phosphatase 448 H Total Protein 5.0 L Albumin 2.7 L Globulin 2.3 Albumin/Globulin Ratio 1.2 Exam: Gen: chronically ill appearing male in NAD HEENT: MMM CV: RRR, no m/r/g Resp: CTA, no w/c/r Abd: soft, nonTTP Ext: mild edema of LE, wounds not examined as they are wrapped in a clean bandage over both legs Assessment: []69 yo male with diffuse bone mets from prostate cancer presenting with gross hematuria and anemia of unclear source. His hematuria appears improved following catheter placement therefore this likely represented bladder outlet obstruction secondary from prostate, however he remains anemic and stool is negative for occult stool. Iron studies show adequate iron stores. In term of his overall status he has declined dramatically over the last several months and has made it clear he does not want treatment for his cancer or other major interventions. He did express to Dr Lopez that he would want to continue Lupron and hosptalization as needed. After additional time explaining how hospice is indeed in line with his current goals he is agreeable and would like written information for review. Plan: []1. Left arm weakness: Brain MRI negative for GREY GOODS MARKER involvement - MRI of the Cspine is limited but does show a left lateral disc bulge at C6-7 which could explain his new onset weakness - trial short course of steroids - no plans for surgical decompression 2. Metastatic prostate CA with urinary retention - progressive disease with Lupron alone - appropriate for hospice referral - Clinton catheter in place 3. Non-healing ulcer with possible osteomyelitis: no aggressive interventions planned at this time - Daily dressing changes - wound consult pending 4. Hematuria: improved with clinton in place, will be chronic 5. Anemia: - stool negative for occult blood - iron and B12 studies show adequate storage - possibly due to marrow infiltrate of malignancy or chronic inflammation - transfuse for Hgb <7.5 g/dl 6. Pain 2/2 bone mets - mirror home schedule of oxycodone and MSContin 7. FEN - stop IVF - replete K/Mg (likely dilutional) Dispo: anticipate dc home Sunday with hospice referral for sign on within 24h, will plan to dc further Lupron
[2019-10-11] MEDS ORDERED: Potassium Chlor TAB* 20 MEQ TAB.ER PO ONE (12:00)
[2019-10-11] MEDS: Morphine TAB Extended Release (*) 30 MG TAB.ER PO SCH ×4 (12:35→23:03)
[2019-10-11] MEDS: oxyCODONE TAB* 5 MG TAB PO SCH ×2 (17:38→23:06)
[2019-10-11] MEDS: FLUoxetine CAP* 20 MG PO SCH (17:38)
[2019-10-11] MEDS: Atorvastatin* 80 MG TAB PO SCH (17:38)
[2019-10-11] MEDS: Gabapentin CAP(*) 400 MG PO SCH (21:12)
[2019-10-12 06:40] LABS: ABS Lymphocytes 0.8 10^3/ul (1.0-4.8); ABS Monocytes 0.4 10^3/ul (0-0.8); ABS Neutrophils 4.4 10^3/ul (1.5-7.7); Eosinophil % 0.5 %; Hematocrit 23 % (42-52); Hemoglobin 7.6 g/dL (14.0-18.0); Lymphocyte % 13.6 %; Mean Corpuscular HGB Conc 33 g/dL (31-36); Mean Corpuscular Hemoglobin 30 pg (27-31); Mean Corpuscular Volume 91 fL (80-94); Mean Platelet Volume 7.4 fL (7.4-10.4); Nucleated Red Blood Cells % 0.1; Platelet Count 170 10^3/uL (150-450); Red Blood Count 2.53 10^6 /uL (4.18-5.48); Red Cell Distribution Width 19 % (10-15); White Blood Count 5.6 10^3/uL (3.5-10.8)
[2019-10-12 06:56] LABS: BUN/Creatinine Ratio 18.9 (8-20); Calcium 7.7 mg/dL (8.6-10.3); EGFR African American 185.4 (>60); EGFR Non-African American 153.3 (>60); Magnesium 1.9 mg/dL (1.9-2.7); Potassium 3.3 mmol/L (3.5-5.0)
[2019-10-12] MEDS ORDERED: Potassium Chlor TAB* 20 MEQ TAB.ER PO ONE (10:00)
[2019-10-12] MEDS: Lisinopril TAB* 10 MG PO SCH (10:11)
[2019-10-12] MEDS: Pantoprazole IV* 40 MG IV SCH (10:13)
[2019-10-12] MEDS: Morphine TAB Extended Release (*) 30 MG TAB.ER PO SCH ×3 (10:13→23:26)
[2019-10-12] MEDS: oxyCODONE TAB* 5 MG TAB PO SCH ×3 (10:14→23:25)
[2019-10-12] MEDS: Multivitamins/Minerals TAB PO SCH (10:14)
[2019-10-12] MEDS: amLODIPine TAB* 5 MG PO SCH (10:14)
--- NOTE | 2019-10-12 11:41 | PN ---
Progress Note - Progress Note Date of Service: 10/12/19 SOAP: Subjective: [Doing ok. No changes today. No change in L arm weakness since starting prednisone Objective: [ Vital Signs: Temp Pulse Resp BP Pulse Ox 97.3 F 60 16 110/46 97 10/12/19 07:15 10/12/19 07:15 10/12/19 10:14 10/12/19 07:15 10/12/19 07:15 Acetaminophen (Tylenol Tab*) 650 mg PO Q6H PRN PRN Reason: PAIN - MILD Amlodipine Besylate (Norvasc Tab*) 10 mg PO DAILY [facility] Last Admin: 10/12/19 10:14 Dose: 10 mg Atorvastatin Calcium (Lipitor*) 80 mg PO QPM [facility] Last Admin: 10/11/19 17:38 Dose: 80 mg Fluoxetine HCl (Prozac Cap*) 20 mg PO QPM [facility] Last Admin: 10/11/19 17:38 Dose: 20 mg Gabapentin (Neurontin Cap(*)) 400 mg PO BEDTIME [facility] Last Admin: 10/11/19 21:12 Dose: 400 mg Lisinopril (Prinivil Tab*) 20 mg PO DAILY [facility] Last Admin: 10/12/19 10:11 Dose: 20 mg Morphine Sulfate (Ms Contin(*)) 30 mg PO TID@1000,1700,2300 [facility] Last Admin: 10/12/19 10:13 Dose: 30 mg Multivitamins/Minerals (Theragran/Minerals Tab*) 1 tab PO DAILY [facility] Last Admin: 10/12/19 10:14 Dose: 1 tab Oxycodone HCl (Roxycodone Tab*) 15 mg PO 1000,1700,2300 [facility] Last Admin: 10/12/19 10:14 Dose: 15 mg Pantoprazole Sodium (Protonix Iv*) 40 mg IV DAILY [facility] Last Admin: 10/12/19 10:13 Dose: 40 mg Prednisone (Deltasone Tab*) 60 mg PO DAILY [facility] Last Admin: 10/12/19 10:11 Dose: 60 mg Laboratory Results - last 24 hr 10/12/19 10/12/19 06:18 06:18 WBC 5.6 RBC 2.53 L Hgb 7.6 L Hct 23 L MCV 91 MCH 30 MCHC 33 RDW 19 H Plt Count 170 MPV 7.4 Neut % (Auto) 78.4 Lymph % (Auto) 13.6 [place] % (Auto) 7.4 Eos % (Auto) 0.5 Baso % (Auto) 0.1 Absolute Neuts (auto) 4.4 Absolute Lymphs (auto) 0.8 L Absolute Monos (auto) 0.4 Absolute Eos (auto) 0.0 Absolute Basos (auto) 0.0 Absolute Nucleated RBC 0.0 Nucleated RBC % 0.1 Sodium 139 Potassium 3.3 L Chloride 108 Carbon Dioxide 24 Anion Gap 7 BUN 10 Creatinine 0.53 L Est GFR ( Amer) 185.4 Est GFR (Non-Af Amer) 153.3 BUN/Creatinine Ratio 18.9 Glucose 193 H Calcium 7.7 L Magnesium 1.9 Exam: Gen: chronically ill appearing male in NAD HEENT: MMM CV: RRR, no m/r/g Resp: CTA, no w/c/r Abd: soft, nonTTP Ext: mild edema of LE, wounds not examined as they are wrapped in a clean bandage over both legs Assessment: []69 yo male with diffuse bone mets from prostate cancer presenting with gross hematuria and anemia of unclear source. His hematuria appears improved following catheter placement therefore this likely represented bladder outlet obstruction secondary from prostate, however he remains anemic and stool is negative for occult stool. Iron studies show adequate iron stores. In term of his overall status he has declined dramatically over the last several months and has made it clear he does not want treatment for his cancer or other major interventions. He did express to Dr Lopez that he would want to continue Lupron and hospitalization as needed. After additional time explaining how hospice is indeed in line with his current goals he is agreeable and requested written information for review. Plan: []1. Left arm weakness: Brain MRI negative for CUSTOMER SERVICE ADVOCATE involvement - MRI of the Cspine is limited but does show a left lateral disc bulge at C6-7 which could explain his new onset weakness - trial short course of steroids, started prednisone 60 mg daily 10/11 - no plans for surgical decompression 2. Metastatic prostate CA with urinary retention - progressive disease with Lupron alone - appropriate for hospice referral - chronic Clinton catheter in place 3. Non-healing ulcer with possible osteomyelitis: no aggressive interventions planned at this time - Daily dressing changes - wound consult pending 4. Hematuria: improved with clinton in place 5. Anemia: - stool negative for occult blood - iron and B12 studies show adequate storage - possibly due to marrow infiltrate of malignancy or chronic inflammation - transfuse for Hgb <7.5 g/dl 6. Pain 2/2 bone mets - mirror home schedule of oxycodone and MSContin 7. FEN - stopped IVF - replete K/Mg (likely dilutional) Dispo: anticipate dc home tomorrow with hospice referral for sign on within 24h , will plan to dc further Lupron]
[2019-10-12] MEDS: FLUoxetine CAP* 20 MG PO SCH (16:45)
[2019-10-12] MEDS: Atorvastatin* 80 MG TAB PO SCH (16:45)
[2019-10-12] MEDS: Gabapentin CAP(*) 400 MG PO SCH (20:34)
[2019-10-13 06:17] LABS: Hematocrit 23 % (42-52); Hemoglobin 7.8 g/dL (14.0-18.0); Mean Corpuscular HGB Conc 34 g/dL (31-36); Mean Corpuscular Hemoglobin 31 pg (27-31); Mean Corpuscular Volume 92 fL (80-94); Mean Platelet Volume 7.1 fL (7.4-10.4); Platelet Count 183 10^3/uL (150-450); Red Blood Count 2.53 10^6 /uL (4.18-5.48); Red Cell Distribution Width 19 % (10-15); White Blood Count 5.9 10^3/uL (3.5-10.8)
[2019-10-13 06:33] LABS: BUN/Creatinine Ratio 20.7 (8-20); Calcium 7.8 mg/dL (8.6-10.3); EGFR African American 167.1 (>60); EGFR Non-African American 138.1 (>60); Magnesium 1.7 mg/dL (1.9-2.7); Potassium 3.7 mmol/L (3.5-5.0)
[2019-10-13] MEDS: Pantoprazole IV* 40 MG IV SCH (10:26)
[2019-10-13] MEDS: oxyCODONE TAB* 5 MG TAB PO SCH (10:26)
[2019-10-13] MEDS: Multivitamins/Minerals TAB PO SCH (10:26)
[2019-10-13] MEDS: Lisinopril TAB* 10 MG PO SCH (10:26)
[2019-10-13] MEDS: amLODIPine TAB* 5 MG PO SCH (10:27)
[2019-10-13] MEDS: Morphine TAB Extended Release (*) 30 MG TAB.ER PO SCH (10:27)
[2019-10-13 12:42] VITALS: BP 113/57
--- NOTE | 2019-10-13 13:00 | CONSULT ---
Subjective Date of Service: 10/13/19 Interval History: Mr. Avalos is a 69 yo male with PMH significant for metastatic prostate cancer , DM2, HTN, depression, anxiety, diabetic peripheral neuropathy, PVD, and s/p left 3rd and 4th toe amputations; who presented to the hospital as a direct admission from [facility] for bloody bowel movements and ABD pain. He presented to the hospital with known ulcers to the left foot. He is followed by the [facility] and was last there on 09/30/19. He was instructed to treat the wounds with ABX ointment at home. He also presented with a calloused area to the medial left foot that has been present for about 2 years per the patient. An open area has been noted to the lower left leg for about 1 week. Patient seen and examined at bedside. Verbal consent for wound assessment and photography. Family History: Unchanged from Admission Social History: Unchanged from Admission Past Medical History: Unchanged from Admission Review of Systems - Measurements Intake and Output: Intake and Output Last 24 Hours 10/11/19 10/12/19 10/13/19 10/14/19 06:59 06:59 06:59 06:59 Intake Total 1694 3340 880 Output Total 2950 2675 1025 Balance -1256 665 -145 Intake: IV Fluids 1454 300 NS (0.9%) 1454 200 mag 4 grams 100 IVPB 100 KCL in Sterile Water 100 Oral 140 3040 880 Output: Urine 1100 Jacobs 1850 2675 1025 Other: Estimated Void Large Medium # Bowel Movements 0 Estimated Stool Amount Large Small # Voids 1 0 - Review of Systems Constitutional Symptoms: Negative: Fever, Other - Chills Dermatology: Positive: Other - Wounds to left toes Endocrinology: Positive: Diabetes Mellitus Objective Active Medications: Acetaminophen (Tylenol Tab*) 650 mg PO Q6H PRN Reason: PAIN - MILD Amlodipine Besylate (Norvasc Tab*) 10 mg PO DAILY [facility] Atorvastatin Calcium (Lipitor*) 80 mg PO QPM [facility] Fluoxetine HCl (Prozac Cap*) 20 mg PO QPM [facility] Gabapentin (Neurontin Cap(*)) 400 mg PO BEDTIME [facility] Lisinopril (Prinivil Tab*) 20 mg PO DAILY [facility] Morphine Sulfate (Ms Contin(*)) 30 mg PO TID@1000,1700,2300 [facility] Multivitamins/Minerals (Theragran/Minerals Tab*) 1 tab PO DAILY [facility] Oxycodone HCl (Roxycodone Tab*) 15 mg PO 1000,1700,2300 [facility] Pantoprazole Sodium (Protonix Iv*) 40 mg IV DAILY [facility] Prednisone (Deltasone Tab*) 60 mg PO DAILY [facility] Vital Signs 10/13/19 10/13/19 10/13/19 07:15 10:26 10:27 Temperature 97.5 F Pulse Rate 58 Respiratory 12 14 14 Rate Blood Pressure 143/53 (mmHg) O2 Sat by Pulse 97 Oximetry Oxygen Devices in Use Now: None Appearance: NAD, laying in bed Ears/Nose/Mouth/Throat: Mucous Membranes Moist Respiratory: Symmetrical Chest Expansion and Respiratory Effort Extremities: - - 2+ DP pulses Skin: - - See skin note below Neurological: Alert and Oriented x 3 Nutrition: Taking PO's Result Diagrams: 10/13/19 06:01 10/13/19 06:01 Microbiology and Other Data: Microbiology 08/12/19 15:11 Toe Gram Stain - Final 08/12/19 15:11 Toe Wound Culture - Final Strep Agalactiae - (Group B) Normal [facility]. Exam Date: 10/03/19 - MRI LOWER EXTREMITY LEFT W/O IMPRESSION: 1. DIFFUSE SOFT TISSUE SWELLING SUGGESTIVE OF CELLULITIS. 2. ABNORMAL SIGNAL INTENSITY IN THE MIDDLE AND DISTAL PHALANGES OF THE FIFTH TOE SUGGESTIVE OF OSTEOMYELITIS. 2. Exam Date: 07/22/19 - FOOT LEFT 3+ VWS IMPRESSION: 1. EROSIVE CHANGE OF THE DISTAL PHALANX OF THE FIFTH DIGIT CONCERNING FOR OSTEOMYELITIS IN THE CORRECT CLINICAL SETTING. 2. OSTEOPENIA. 3. OSTEOARTHRITIS 3. Exam Date: 03/02/16 - VL ANK/BRACHIAL INDICES Right: The posterior tibial ankle brachial index is 1.23. The dorsalis pedis ankle brachial index is 1.13. The digital brachial index is 0.62 The posterior tibial waveform is triphasic. The dorsalis pedis waveform is triphasic. Left: The posterior tibial ankle brachial index is 0.84. The dorsalis pedis ankle brachial index is 1.07. The digital brachial index is 0.65 The posterior tibial waveform is biphasic. The dorsalis pedis waveform is triphasic. IMPRESSION: MILDLY DECREASED ABIS OF THE DIGITS AND LEFT POSTERIOR TIBIAL ARTERY WITH MINIMALLY DAMPENED WAVEFORMS ON THE LEFT, CONSISTENT WITH MILD PERIPHERAL ARTERIAL OCCLUSIVE DISEASE. Skin Deviation Note - Skin Deviation Findings Medial left foot - There is a calloused area with a small open area in the center, measures 0.7 cm x 0.8 cm x 0.1 cm. The wound bed is pink epithelial tissue. The surrounding skin is intact. There is no drainage. No odor. Left foot - There are open areas to the 2nd and 5th toes. The open area on the distal 2nd toe, measures 0.6 cm x 1 cm x 0.1 cm. The wound base is red granulation tissue. The surrounding skin is calloused and intact. There is no drainage. No odor. The open area on the 5th lateral toe, measures 0.6 cm x 0.5 cm x 0.1 cm. The wound base is amaya colored tissue. The surrounding skin is intact. There is scant drainage. Left medial lower leg - There is a superficial open area, measures 2.5 cm x 3.5 cm x 0.1 cm. The wound bas is 10% red epithelial tissue and 90% yellow adherent slough. The surrounding skin is intact with erythema. There is scant drainage. No odor. Wound Problem/Plan Assessment: Mr. Avalos is a 69 yo male with PMH significant for metastatic prostate cancer , DM2, HTN, depression, anxiety, diabetic peripheral neuropathy, PVD, and s/p left 3rd and 4th toe amputations; who presented to the hospital as a direct admission from [facility] for bloody bowel movements and ABD pain. He presented to the hospital with known ulcers to the left foot, a calloused area to the medial left foot, and an open area to the lower left leg. 1. Neuropathic ulcers to the left 2nd and 5th toes. These have been present since at least June 2019. He has been following with the [facility] for these. They have recommended the areas be treated with ABX ointment. Per the patient he has been treating the areas with "clover honey from [employer]" in place of the ABX ointment For the time being, we will treat the wounds as Palliative wounds. Recommend washing the feet with soap and water daily. Apply ABX ointment daily (or Pt may use Medihoney if he prefers) followed by non-adherent DSG and rolled gauze. Consider updating ABIs after the lower extremity wound has healed if the patient is doing well and possibly going to be signed off Hospice. He can continue to follow with the Wound Clinic if he would like and is able to do so while signed on to Hospice. 2. Left LE venous statsis ulcer. Pt is planning on signing on with Hospice soon. We will treat this wound as a Palliative wound. Recommend washing the leg with soap and water. Recommend applying a non-adherent dressing (i.e. Telfa) to the open area, followed by rolled gauze, change every other day or as needed for drainage. Continue 1 layer of Medigrip compression to help with edema control if Pt is able to tolerate. Keep legs elevated as able. 3. Metastatic prostate cancer. With bone mets. Pt is planning on signing onto Hospice at discharge from the hospital. 4. DM2 with peripheral neuropathy. HgA1C was 6.9 on 07/22/19. Maintain good glycemic control to allow for wound healing. 5. Diet. Regular diet. 6. Code Status. Full Code Status. 7. Disposition. Inpatient, disposition per primary medicine team. TIME SPENT: Time for this wound consultation was 25 minutes and 15 minutes was spent with the patient discussing past medical history; current wound treatments ; removing old dressings; assessing, measuring, and photographing the wounds; and discussing recommendations for wound care at discharge with the patient. Is Patient a Wound Clinic Patient: Yes Current Treatment: ABD ointment to left toes Comment: Last appt was 09/30/19 Attending: Brigitte Lunsford
--- NOTE | 2019-10-13 13:51 | DS ---
CC: Dr. Jhaveri; Dr. Dixon; Dr. Headley* DISCHARGE SUMMARY: DATE OF ADMISSION: 10/08/19. DATE OF DISCHARGE: 10/13/19. PRIMARY CARE PROVIDER: Dr. Jhaveri. PRIMARY UROLOGIST: Dr. Headley. CONSULTING PALLIATIVE PHYSICIAN: Dr. Lopez. PRIMARY ONCOLOGIST: Dr. Mike Dixon. DISCHARGING PROVIDER: AMY Ferrer. ATTENDING PHYSICIAN: Dr. Mike Dixon* (dictated by AMY Ferrer). PRIMARY DISCHARGE DIAGNOSES: 1. Urinary obstruction secondary to prostate enlargement related to metastatic prostate cancer. 2. Anemia of uncertain etiology, but ruled out gastrointestinal bleed. 3. Lower extremity ulceration with concern for possible osteomyelitis. 4. Diabetes. 5. Left arm weakness. 6. Metastatic prostate cancer. DISCHARGE MEDICATIONS: 1. Amlodipine 10 mg p.o. daily. 2. Aspirin 81 mg p.o. daily. 3. Atorvastatin 80 mg p.o. daily. 4. Fluoxetine 20 mg p.o. daily. 5. Gabapentin 400 mg p.o. at bedtime. 6. Lisinopril 20 mg p.o. daily. 7. Morphine sulfate 30 mg p.o. 3 times daily. 8. Multivitamin 1 tablet p.o. daily. 9. Oxycodone 5 mg p.o. q.4 hours as needed for pain. 10. Prednisone 40 mg p.o. x3 days, followed by 20 mg p.o. x3 days, then stop. HOSPITAL IMAGIN. Brain MRI - limited noncontrasted study shows diffuse involutional change. No acute findings. 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 2. MRI cervical spine - limited noncontrast images show a left-sided disk protrusion at C6-7. 3. 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 HOSPITAL COURSE: This is a 69-year-old gentleman with metastatic prostate cancer who has been off of systemic therapy apart from androgen deprivation for at least a year and a half per his request who presented to the oncology office with progressive anemia and urinary obstruction as well as new-onset left arm weakness following a fall at home. The patient had an initial hemoglobin of 6.6 , which had been progressively worse over the last couple of months. He had reported some hematuria and/or bloody stools. He initially received 1 unit of packed red blood cells without an appropriate response in hemoglobin, followed by a second unit of packed red blood cells improving to 8.1 g/dL. Stool was eventually found to be heme negative with iron stores adequate. Regarding urinary retention, the patient has an enlarged prostate secondary to malignancy and has likely had some chronic retention for quite some time. A Jacobs catheter was placed successfully and initially had noted hematuria with frequent clots that caused intermittent obstruction in the Jacobs catheter, eventually resolved after a few days with the catheter in place. Regarding his left upper extremity weakness, the patient had sustained a fall at home, after which he was unable to extend his wrist on the left side. This was approximately 1 week prior to his hospital stay. He had x-rays which were negative for any obvious fractures and then was scheduled for an MRI of his brain and C- spine, which he was unable to tolerate fully. Limited images, however, did not demonstrate any obvious intracranial disease, but did demonstrate left lateral disk protrusion at C6-7, which could be responsible for his new-onset weakness. He was started on prednisone in hopes of getting some return in function by reducing inflammation, but he had complete strength loss for greater than 1 week at the time of presentation, so less likely to see significant improvement. The patient has declined systemic therapy for his prostate cancer for quite some time and has extensive bony metastasis. He has continued androgen deprivation, but despite this PSA has continued to climb to greater than 5000. He has not had any recent systemic CT scans, but has known extensive bony metastasis with relatively moderate pain as a result of this, well controlled with his current pain medication regimen. Discussed hospice therapy during this hospitalization, which he was eventually agreeable with. The patient does not want to pursue any additional systemic therapy and would like conservative treatment only for the other complications addressed above including the concern for anemia and left upper extremity weakness. DISPOSITION AND FOLLOWUP PLAN: The patient is being discharged to home in stable condition where he has lived independently. He has been referred to hospice with plans for home sign on. I am concerned about his ability to continue to care for himself at home, but he adamantly refused a [place] [facility] facility during this hospital stay and has been able to ambulate independently, although I think his physical status is quite tenuous. We will discharge him with his usual pain medications and a rather quickly tapering dose of prednisone in hopes of returning some function of his left hand. AMY FERRER [id number]/[facility] #: [id number]
== END 2019-10-13 15:45 | disposition hospice, home (50) | DRG 723 ==
LOC: MED 16:00 → INTOOBSV 17:24 → MED 17:24 → OBSVTOIN 10-08 16:00
PROVIDERS: ADMIT Internal Medicine Hematology & Oncology; ATTEND Internal Medicine Hematology & Oncology
PROC: 0T9B70Z Drainage of Bladder with Drainage Device, Via Natural or Artificial Opening (ICD-10-PCS; principal; 2019-10-08)
PROC: 30233N1 Transfusion of Nonautologous Red Blood Cells into Peripheral Vein, Percutaneous Approach (ICD-10-PCS; 2019-10-08)
DX: C61 Malignant neoplasm of prostate (principal); C79.51 Secondary malignant neoplasm of bone; N17.9 Acute kidney failure, unspecified; M86.8X7 Other osteomyelitis, ankle and foot; D64.9 Anemia, unspecified; R33.8 Other retention of urine; E78.00 Pure hypercholesterolemia, unspecified; I10 Essential (primary) hypertension; Z66 Do not resuscitate; I87.8 Other specified disorders of veins; E11.42 Type 2 diabetes mellitus with diabetic polyneuropathy; E87.6 Hypokalemia; L97.529 Non-pressure chronic ulcer of other part of left foot with unspecified severity; N32.0 Bladder-neck obstruction; M50.223 Other cervical disc displacement at C6-C7 level; R31.0 Gross hematuria; Z79.82 Long term (current) use of aspirin; Z79.899 Other long term (current) drug therapy
CPT/HCPCS: 36415; 70553; 72141; 80048; 80053; 81003; 81015; 82272; 82607; 82728; 83540; 83550; 83735; 85025; 85027; 86922; 87086; 99219; 99232; 99233; 99239; A9270-GY; G0378; G8978-GP-CJ; G8979-GP-CI; J3475; J3480; J7512; P9040